=== PATIENT | male | born 1945 | race Hispanic/Latino ===

== ENCOUNTER → 2017-06-24 | Outpatient (CLI) | payer OTHER ==
[~2017-06-24] MED LIST: GLIPIZIDE10 MG PO; IBUPROFEN PO; IOPAMIDOL 370 MG/ML 200 ML INFUS..BTL INJ ONE; LANTUS 3ML100 UNITS/ SQ; METFORMIN HCL500 MG PO; METOPROLOL PO; SODIUM CHLORIDE 0.9% 50ML 50 ML ONE
[2017-06-24 15:40] LABS: BLOOD UREA NITROGEN 24 mg/dL (7-26); BUN/CREATININE RATIO 24 (6-25); EST GLOMERULAR FILTRATION RATE > 60 ML/MIN (60-)
--- NOTE | 2017-06-25 08:08 | Diagnostic Imaging Report ---
History: Arterial stenosis Comparison studies:MRA head and neck 07/26/2015 Technique: Axial images were obtained from the thoracic inlet. Coronal and sagittal images reconstructed from the axial data. Intravenous contrast: 100 cc of Omnipaque 300. Findings: Percentage of stenosis will be based on the NASCET criteria. Aortic arch and major vessels: Patent. No abnormalities. Common carotid arteries: Patent. No abnormalities. Right internal carotid artery: Patent. Calcified atherosclerotic plaque at the bulb results in less than 10% stenosis. Calcified and noncalcified atherosclerotic plaque at the cavernous segment posterior genu results in less than 30% stenosis. Patent MCA and PARUL. Left internal carotid artery: Calcified and noncalcified atherosclerotic plaque at the bulb results in more than 90% stenosis. Calcified and noncalcified plaque at the cavernous segment posterior genu results in more than 70% stenosis. Patent MCA. Nonvisualization of the left A1 segment. Distal PARUL opacification . Right vertebral artery: Hypoplastic right arising from aortic arch distal to the 3 trunks. Left vertebral artery: Dominant left. Noncalcified plaque results in 40-60% stenosis of the distal intracranial segment. Spiculated cavitated opacities in the left upper lobe measuring up to 1 cm. Bilateral cataract surgery changes. IMPRESSION: High-grade stenosis of the left carotid bulb secondary to calcified and noncalcified atherosclerotic plaque. High-grade stenosis of the posterior genu ICA cavernous segment. Mild stenosis of the right carotid bulb and ICA cavernous segment. Moderate stenosis at the left dominant vertebral artery intracranial segment (V4). Hypoplastic right vertebral lateral arising from the aortic arch. Spiculated cavitary opacities in the left upper lobe, recommend further evaluation with CT thorax. Signed by: DR Yung Medina M.D. on 06/25/2017 8:05 AM
== END ==
LOC: CT 14:52
PROVIDERS: ATTEND Internal Medicine Cardiovascular Disease
DX: I65.23 Occlusion and stenosis of bilateral carotid arteries (principal)
CPT/HCPCS: 36415; 70498; 82565; 84520; Q9967

== ENCOUNTER 2017-07-06 10:54 | Inpatient (IN) | payer OTHER ==
[2017-07-05 09:47] LABS: BASOPHILS % 0.3 % (0.0-1.0); EOSINOPHILS # (AUTO) 0.2 (0.0-0.4); EOSINOPHILS % 1.7 % (0.0-6.0); HEMATOCRIT 27.7 % (38.2-49.6); HEMOGLOBIN 9.6 g/dL (14.0-18.0); LYMPHOCYTES # (AUTO) 1.6 (1.0-3.2); LYMPHOCYTES % 18.9 % (18.0-39.1); MEAN CORPUSCULAR HEMOGLOBIN 30.7 pg (28-32); MEAN CORPUSCULAR HGB CONC 34.7 g/dL (31-35); MEAN CORPUSCULAR VOLUME 88.5 fL (81-99); MONOCYTES # (AUTO) 0.6 (0.2-0.8); MONOCYTES % 6.8 % (4.4-11.3); NEUTROPHILS # (AUTO) 6.1 (2.1-6.9); NEUTROPHILS % 71.4 % (38.7-80.0); PLATELET COUNT 202 x10e3/uL (140-360); RED BLOOD COUNT 3.13 x10e6/uL (4.3-5.7); RED CELL DISTRIBUTION WIDTH 13.2 % (11.7-14.4)
[2017-07-05 10:05] LABS: ANION GAP 14.1 mmol/L (8-16); BLOOD UREA NITROGEN 21 mg/dL (7-26); BUN/CREATININE RATIO 21 (6-25); CALCIUM 9.2 mg/dL (8.4-10.2); CARBON DIOXIDE 24 mmol/L (22-29); CHLORIDE 105 mmol/L (98-107); CREATININE, SERUM 1.02 mg/dL (0.72-1.25); EST GLOMERULAR FILTRATION RATE > 60 ML/MIN (60-); GLUCOSE 293 mg/dL (74-118); POTASSIUM 4.1 mmol/L (3.5-5.1); SODIUM 139 mmol/L (136-145)
[2017-07-05 10:12] LABS: INR 1.02; PROTHROMBIN TIME 13.9 seconds (11.9-14.5)
[2017-07-05 10:13] LABS: PARTIAL THROMBOPLASTIN TIME 37.7 seconds (23.8-35.5)
--- NOTE | 2017-07-05 11:48 | Diagnostic Imaging Report ---
PROCEDURE: Frontal and lateral views of the chest. COMPARISON: Chest 2 views 02/21/2015. INDICATIONS: PRE OP FINDINGS: Lines/tubes: None. Lungs: Bilateral nodular densities, most prominent in the right upper lung zone projecting between the right posterior fifth and sixth ribs. Airspace opacity in the left lung base. Pleura: Small left pleural effusion. No pneumothorax. Heart and mediastinum: The heart and the mediastinum are normal. Bones: No acute bony abnormality. Median sternotomy wires. IMPRESSION: Nodular densities may represent parenchymal nodules or multifocal pneumonia. CT chest may provide additional information for further characterization. Dictated by: Jose Moore M.D. on 07/05/2017 at 11:57 Electronically approved by: Jose Moore M.D. on 07/05/2017 at 11:57
[~2017-07-06] VITALS: Ht 167.6 cm; Wt 73.9 kg
[2017-07-06] VITALS (28 sets, daily range): BP systolic 139–205; BP diastolic 64–134
[~2017-07-06 10:54] MED LIST changes: +ATORVASTATIN CA10 MG PO; +FERROUS SULFAT325 MG PO; +FINASTERIDE5 MG PO; +FLOMAX0.4 MG PO; +GABAPENTIN300 MG PO; +IBUPROFEN600 MG PO; -IOPAMIDOL 370 MG/ML 200 ML INFUS..BTL INJ ONE; +LASIX20 MG PO; +LISINOPRIL2.5 MG PO; +METOPROLOL SUCC25 MG PO; +PIOGLITAZONE30 MG PO; -SODIUM CHLORIDE 0.9% 50ML 50 ML ONE
[2017-07-06] MEDS ORDERED: HEPARIN SOD/SOD CHLORIDE 1,000 ML ONE (11:52)
[2017-07-06] MEDS ORDERED: THROMBIN FOR SOLN 5,000 UNIT VIAL ONE (12:39)
[2017-07-06] MEDS ORDERED: MUPIROCIN 2% OINT 22 GM TUBE ONE (12:39)
[2017-07-06] MEDS ORDERED: PROTAMINE SULFATE 10 MG/ML 5 ML VIAL ONE (12:39)
[2017-07-06] MEDS ORDERED: HEPARIN SOD (PORCINE) 1000 UNIT/ML 30ML ONE (12:39)
[2017-07-06] MEDS ORDERED: LIDOCAINE HCL 1% 2 ML AMP ONE (12:39)
[2017-07-06] MEDS ORDERED: SODIUM CHLORIDE 0.9% 500ML 500 ML ONE (12:40)
[2017-07-06] MEDS ORDERED: GELATIN SPONGE SZ 100 ONE (12:40)
[2017-07-06] MEDS ORDERED: LIDOCAINE HCL (LTA) 4 ML SOLN ONE (12:44)
[2017-07-06] MEDS ORDERED: MIDAZOLAM HCL 2 MG/2 ML VIAL ONE (14:03)
[2017-07-06] MEDS ORDERED: FENTANYL CITRATE/PF 100MCG/2 ML INJ ONE (14:03)
[2017-07-06] MEDS ORDERED: CEFAZOLIN SOD 1 GM/NS 50ML 50 ML IV ONE (14:44)
[2017-07-06] MEDS ORDERED: SEVOFLURANE INHAL SOLN 250 ML PEN BTL ONE (17:12)
[2017-07-06] MEDS ORDERED: DEXAMETHASONE SOD PHOS INJ 4 MG/ML VIAL ONE (17:12)
[2017-07-06] MEDS ORDERED: PROPOFOL IV EMULSION 10 MG/ML 20 ML VIAL ONE (17:12)
[2017-07-06] MEDS ORDERED: NEOSTIGMINE 5 MG/5ML SYR ONE (17:12)
[2017-07-06] MEDS ORDERED: SUCCINYLCHOLINE 200 MG/10 ML SYR ONE (17:12)
[2017-07-06] MEDS ORDERED: LABETALOL HCL IV 5 MG/ML 20ML MDV ONE (17:12)
[2017-07-06] MEDS ORDERED: ATROPINE SULFATE 1 MG/ML VIAL ONE (17:12)
[2017-07-06] MEDS ORDERED: ROCURONIUM BROMIDE 10 MG/ML 5ML VIAL ONE (17:12)
[2017-07-06] MEDS ORDERED: LIDOCAINE HCL 2% LOCAL INJ 5 ML SDV VIAL INJ ONE (17:12)
[2017-07-06] MEDS ORDERED: KETOROLAC TROMETHAMINE 30 MG/ML VIAL ONE (17:12)
[2017-07-06] MEDS ORDERED: ONDANSETRON HCL INJ 2 MG/ML VIAL ONE (17:12)
[2017-07-06 18:35] LABS: BASOPHILS # (AUTO) 0.1 (0.0-0.1); BASOPHILS % 0.3 % (0.0-1.0); EOSINOPHILS # (AUTO) 0.1 (0.0-0.4); EOSINOPHILS % 0.7 % (0.0-6.0); HEMATOCRIT 28.4 % (38.2-49.6); HEMOGLOBIN 9.9 g/dL (14.0-18.0); LYMPHOCYTES # (AUTO) 1.2 (1.0-3.2); LYMPHOCYTES % 8.4 % (18.0-39.1); MEAN CORPUSCULAR HEMOGLOBIN 31.6 pg (28-32); MEAN CORPUSCULAR HGB CONC 34.9 g/dL (31-35); MEAN CORPUSCULAR VOLUME 90.7 fL (81-99); MONOCYTES # (AUTO) 0.2 (0.2-0.8); MONOCYTES % 1.6 % (4.4-11.3); NEUTROPHILS % 87.8 % (38.7-80.0); PLATELET COUNT 236 x10e3/uL (140-360); RED BLOOD COUNT 3.13 x10e6/uL (4.3-5.7); RED CELL DISTRIBUTION WIDTH 13.5 % (11.7-14.4)
[2017-07-06 18:51] LABS: ANION GAP 15.3 mmol/L (8-16); BLOOD UREA NITROGEN 17 mg/dL (7-26); BUN/CREATININE RATIO 20 (6-25); CALCIUM 9.2 mg/dL (8.4-10.2); CARBON DIOXIDE 24 mmol/L (22-29); CHLORIDE 105 mmol/L (98-107); CREATININE, SERUM 0.86 mg/dL (0.72-1.25); EST GLOMERULAR FILTRATION RATE > 60 ML/MIN (60-); GLUCOSE 209 mg/dL (74-118); POTASSIUM 4.3 mmol/L (3.5-5.1); SODIUM 140 mmol/L (136-145)
[2017-07-06] MEDS ORDERED: SODIUM CHLORIDE 0.9% 1000ML 1,000 ML IV SCH (19:45)
[2017-07-06] MEDS ORDERED: CEFAZOLIN SOD 1 GM VIAL IV NR ×2 (20:00→22:00)
[2017-07-06] MEDS ORDERED: DEXTROSE 50% SYRINGE 50 ML IV PRN (20:15)
[2017-07-06] MEDS ORDERED: ONDANSETRON HCL 4 MG ORAL DISINTEGRATING TAB PO PRN (20:15)
[2017-07-06] MEDS: MORPHINE SULFATE 2 MG/ML SYR IV PRN (20:37)
[2017-07-06] MEDS: LABETALOL HCL IV 5 MG/ML 20ML MDV IV PRN (20:37)
[2017-07-06] MEDS: FINASTERIDE 5 MG TAB PO SCH (21:56)
[2017-07-06] MEDS: ATORVASTATIN 10 MG TAB PO SCH (21:56)
[2017-07-06] MEDS: TAMSULOSIN HCL 0.4 MG CAP PO SCH (21:56)
[2017-07-06] MEDS: METOPROLOL SUCCINATE 25 MG TAB XL PO SCH (21:56)
[2017-07-07] VITALS (57 sets, daily range): BP systolic 113–186; BP diastolic 43–90
[2017-07-07] MEDS ORDERED: PNEUMOCOCCAL VACCINE POLYVALENT 23 MCG/0.5 ML VIAL IM ONE (00:15)
[2017-07-07] MEDS: INSULIN REGULAR, HUMAN 100 UNIT/1 ML 3ML VIAL SQ SCH ×6 (01:18→20:29)
[2017-07-07] MEDS: HYDROCODONE/APAP 5MG-325MG TAB PO PRN (05:24)
[2017-07-07 06:08] LABS: BASOPHILS % 0.1 % (0.0-1.0); HEMATOCRIT 25.7 % (38.2-49.6); HEMOGLOBIN 8.9 g/dL (14.0-18.0); LYMPHOCYTES # (AUTO) 1.2 (1.0-3.2); LYMPHOCYTES % 8.7 % (18.0-39.1); MEAN CORPUSCULAR HGB CONC 34.6 g/dL (31-35); MEAN CORPUSCULAR VOLUME 89.5 fL (81-99); MONOCYTES # (AUTO) 0.9 (0.2-0.8); MONOCYTES % 6.3 % (4.4-11.3); NEUTROPHILS # (AUTO) 11.6 (2.1-6.9); NEUTROPHILS % 84.4 % (38.7-80.0); PLATELET COUNT 252 x10e3/uL (140-360); RED BLOOD COUNT 2.87 x10e6/uL (4.3-5.7); RED CELL DISTRIBUTION WIDTH 13.2 % (11.7-14.4)
[2017-07-07 06:46] LABS: ALANINE AMINOTRANSFERASE 11 IU/L (0-55); ALBUMIN 2.8 g/dL (3.5-5.0); ALBUMIN/GLOBULIN RATIO 0.7 (0.8-2.0); ALKALINE PHOSPHATASE 57 IU/L (40-150); ANION GAP 11.1 mmol/L (8-16); BLOOD UREA NITROGEN 20 mg/dL (7-26); BUN/CREATININE RATIO 21 (6-25); CALCIUM 8.7 mg/dL (8.4-10.2); CARBON DIOXIDE 25 mmol/L (22-29); CHLORIDE 107 mmol/L (98-107); CREATININE, SERUM 0.96 mg/dL (0.72-1.25); EST GLOMERULAR FILTRATION RATE > 60 ML/MIN (60-); GLUCOSE 299 mg/dL (74-118); POTASSIUM 4.1 mmol/L (3.5-5.1); SODIUM 139 mmol/L (136-145)
[2017-07-07] MEDS: TAMSULOSIN HCL 0.4 MG CAP PO SCH (09:00)
[2017-07-07] MEDS: METOPROLOL SUCCINATE 25 MG TAB XL PO SCH ×2 (09:00→17:02)
[2017-07-07] MEDS: FINASTERIDE 5 MG TAB PO SCH (09:00)
[2017-07-07] MEDS: INSULIN DETEMIR 100 UNIT/ML PEN SQ SCH (09:00)
[2017-07-07] MEDS: LISINOPRIL 2.5 MG TAB PO SCH (09:00)
[2017-07-07] MEDS ORDERED: INSULIN DETEMIR 100 UNIT/ML PEN SQ SCH (09:00)
[2017-07-07] MEDS: FUROSEMIDE 20 MG TAB PO SCH (09:00)
[2017-07-07] MEDS ORDERED: PIOGLITAZONE HCL 15 MG TAB PO SCH (09:00)
[2017-07-07] MEDS: FERROUS SULFATE 325 MG TAB PO SCH (09:00)
[2017-07-07] MEDS: ATORVASTATIN 10 MG TAB PO SCH (09:00)
[2017-07-07] MEDS: IBUPROFEN 600 MG TAB PO SCH ×2 (09:00→17:02)
[2017-07-07] MEDS ORDERED: PIOGLITAZONE HCL 30 MG PO SCH (09:00)
--- NOTE | 2017-07-07 09:10 | Consultation ---
DATE OF CONSULTATION: July 07, 2017 PULMONARY/CRITICAL CARE CONSULTATION CHIEF COMPLAINT: Recent carotid endarterectomy and abnormal chest x-ray. HISTORY OF PRESENT ILLNESS: The patient is a 72-year-old man. He came to the hospital for a carotid endarterectomy. Because of the cephalad extension of the lesion, Dr. Espinosa was not able to do the shunt. Postoperatively, there was some transient weakness in the contralateral arm and leg. He had to be subsequently re-explored, but no complications were found. This morning he is moving the right side with no problems. His chest x-ray preoperatively showed some basilar nodular infiltrates. These are new as compared to 2013. He reports having had the flu about 2-3 weeks ago. This morning he did not complain of any chest pain or congestion. He has no cough. PAST SURGICAL HISTORY: Status post carotid endarterectomy as noted above. PAST MEDICAL HISTORY 1. Diabetes. The patient takes insulin at home. 2. Hypertension. SOCIAL HISTORY: The patient is not actively smoking. He is not a drinker. FAMILY HISTORY: Noncontributory. REVIEW OF SYSTEMS: He has no headache or fever. He has no cough or congestion. He does have a bandage over his surgical site. He is not complaining of any chest pain. There is no abdominal pain. There is no nausea or vomiting. He is now moving his extremities well. PHYSICAL EXAMINATION VITAL SIGNS: The patient is afebrile. Vital signs are stable. HEENT: Shows no facial swelling or erythema. Nasal mucosa is normal. The oropharynx is normal. LYMPHATIC: Shows no submandibular, cervical or supraclavicular adenopathy. CARDIAC: Reveals regular rate and rhythm with a normal S1 and S2. There are no murmurs or rubs. LUNGS: Auscultation of the lungs reveals clear breath sounds bilaterally. There is no wheezing. ABDOMEN: Soft and nontender. There is no rebound or guarding. EXTREMITIES: Shows no leg edema or calf tenderness. There is no cyanosis or clubbing. SKIN: Shows no rashes. NEUROLOGIC: Shows no focal abnormalities. IMPRESSION 1. 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 2. Diabetes with insulin at home. 3. Coronary artery disease. 4. Hypertension. 5. Abnormal basilar infiltrates on chest x-ray. PLAN 1. Patient will have a CT scan of the chest to better evaluate the infiltrates. 2. We will also obtain a flu swab. 3. Restart patient's home Lantus and monitor blood sugars. 4. Monitor blood pressure. Job#: [id number] RI
--- NOTE | 2017-07-07 11:19 | Consultation ---
DATE OF CONSULTATION: July 06, 2017 CARDIOLOGY CONSULTATION REASON FOR CONSULTATION: Hypertension, status post left CEA. HPI: This is a 72-year-old male that presented status post left CEA by Dr. Jasson Esipnosa, and he was transferred to ICU for continuation of care. He had a history of carotid stenosis, high blood pressure and diabetes. He denies any chest pain, any palpitation, any dizziness, any shortness of breath, or diaphoresis. EKG showed normal sinus rhythm. He had an arterial line with good blood pressure reading and tracing, and dressing to the left neck. PAST MEDICAL HISTORY: Diabetes, hypertension, hyperlipidemia, CAD, BPH, anemia, and carotid stenosis. PAST SURGICAL HISTORY: Open heart surgery and left CEA. FAMILY HISTORY: Positive for hypertension. SOCIAL HISTORY: Lives at home with family. No smoking. No drinking. MEDICATIONS: See med list. ALLERGIES: HE IS NOT ALLERGIC TO ANY MEDICATIONS. REVIEW OF SYSTEMS: Negative except as mentioned above. PHYSICAL EXAMINATION VITAL SIGNS: Temperature 98, heart rate 75, blood pressure 134/54, respirations 16, and oxygen saturation 99% on 2 L nasal cannula. GENERAL: He is awake, alert and oriented times 3. Able to move all extremities. HEENT: Mucous membrane moist. NECK: Supple. LUNGS: Bilaterally clear to auscultation. CARDIOVASCULAR: S1 and S2. ABDOMEN: Soft. NEUROLOGICAL: Intact. He is able to move all upper and lower extremities. EXTREMITIES: Bilateral lower extremities with no edema. LABS: Sodium 139, potassium 4.1, chloride 107, CO2 25, BUN 20, creatinine 0.96, glucose is 99. White blood cells 13.6, hemoglobin 8.9, hematocrit 25.7, and platelets 252,000. PT 13.9, PTT 37.7 and INR 1.07. IMPRESSION 1. Status post left carotid endarterectomy. 2. Hypertension. 3. Coronary artery disease with coronary artery bypass graft. 4. Diabetes. 5. Anemia. 6. History of BPH. ASSESSMENT AND PLAN: Will get an echo to reassess the LV and valve function. Will continue home blood pressure medications. PT and OT to get him out of the bed. Okay to discharge the art line. Further cardiac workup pending clinical course. Thank you for this consultation. DICTATED BY ZURI BATES NP Job#: [id number] PAULA
--- NOTE | 2017-07-07 15:53 | Consultation ---
DATE OF CONSULTATION: July 07, 2017, at 1 o'clock in the evening. LOCATION: [facility], ICU. NEUROLOGICAL CONSULTATION ATTENDING PHYSICIAN: This is a patient of Dr. Jasson Espinosa. REASON FOR CONSULTATION: Post carotid endarterectomy. This is a 72-year-old male who underwent left carotid endarterectomy by Dr. Jasson Espinosa. The patient was transferred to the ICU. Apparently, he has been having a little weakness of the right arm and right leg, the reason for which a neurological consultation has been requested. The left carotid endarterectomy underwent without any problems. Apparently, the patient also has stenosis of the intracranial portion of the internal carotid. PAST HISTORY: The patient has a history of diabetes, hypertension, coronary artery disease, hyperlipidemia, coronary artery bypass. MEDICATIONS: The list of medications has been reviewed. FAMILY HISTORY: Positive for hypertension. SOCIAL HISTORY: He says he does not smoke and does not drink. ALLERGIES: NONE KNOWN. REVIEW OF SYSTEMS: All 12 steps negative. PHYSICAL EXAMINATION VITAL SIGNS: Blood pressure today is 139/73, pulse 77, temperature 98.8. LUNGS: Clear to auscultation. HEART: Regular sinus rhythm. ABDOMEN: Soft and nontender. No organomegaly. LOWER EXTREMITIES: No edema. No cyanosis. No clubbing. NEUROLOGIC: The patient is awake. He is alert. He is oriented times 3. His speech is clear. No dysarthria or dysphagia. He denies any headache. No dizziness. No speech or swallowing difficulty. He denies any weakness in the upper or lower extremities. CRANIAL NERVES: Pupils are both equal and reactive. The extraocular movements are full. Visual conteh are grossly normal. No evidence of facial weakness. Tongue protrudes in the midline. Palatal movement is normal. MOTOR POWER: Patient is able to elevate both arms against gravity approximately 80 degrees without difficulty. Abduction of the arms 5/5. Flexion and extension of both arms 5/5. Dorsiflexion of both wrists 5/5. Finger extension 5/5. Hand migration agent 5/5. Lower extremities able to elevate each leg against gravity 20 degrees without any difficulty. Flexion of the hips 5/5 bilaterally. Flexion and extension of the knees 5/5. Dorsiflexion of the ankles 5/5. Plantar flexion 5/5. Extension of the toes 5/5. DEEP TENDON REFLEXES: Triceps, biceps and radials are 1+. Knee jerks 1+. Ankle jerks absent bilaterally. Plantar stimulation is down bilaterally. HEAD: Normocephalic. NECK: Supple. LABORATORY WORKUP: CBC shows white count 13,600 with hemoglobin 8.9, hematocrit 25.7, platelets 252,000. Chemistries: Today, sodium 139, potassium 4.1, BUN 20, creatinine 0.96, estimated GFR greater than 60, blood sugar 299. Liver enzymes are all normal. PT and PTT are normal. INR is 1.02. IMAGING: Chest x-ray impression: Nodular densities may represent parenchymal nodes or multifocal pneumonia. CTA of chest has been advised to have. IMPRESSION 1. Status post left carotid endarterectomy. 2. Hypertension. 3. Diabetes mellitus, type 2. 4. Anemia. Patient is doing very well after the surgery. There is no evidence of any focal deficit to suspect any vascular event. The patient should be followed closely. We will be discussing with the attending physician for further options. Job#: [id number]
--- NOTE | 2017-07-07 19:26 | Diagnostic Imaging Report ---
PROCEDURE: CT CHEST WITHOUT CONTRAST CT scan of the chest WITHOUT intravenous contrast, using standard protocol. TECHNIQUE: The chest was scanned utilizing a multidetector helical scanner from the apex to the level of the adrenal glands. No IV contrast was administered per physician's request. Coronal and sagittal multiplanar reformations were obtained. COMPARISON: Patients [facility], , CHEST 2 VIEWS, 07/05/2017, 10:11. INDICATIONS: BIBASILAR INFILTRATES FINDINGS: Lines/tubes: None. Lungs and Airways: Patchy groundglass and nodular opacities in the upper lobes, lingula, and right middle lobe extending along the bronchovascular bundles (series 3, images 29-39 on the right, series 3, image 18, and 33 on the left hand series 3, image 72-89 in the lingula). Mildly thick walled rounded lesion with central lucency, measuring 0.7 cm in the left upper lobe (series 3, image 19, and coronal image 49). Multiple bilateral lower lobe linear opacities, likely representing atelectasis and/or scarring. There is a somewhat wedge-shaped density in the posterior left lower lobe, with swirling of airways and vessels around it, suggesting round atelectasis (series 3, image 81). Mild compressive atelectasis of the lower lobes, right greater than left. Pleura: Trace left and small right pleural effusions. Heart and mediastinum: Thyroid is unremarkable. Heart size is normal. Extensive atherosclerotic calcification of the coronary arteries. The aorta is non-aneurysmal. Main pulmonary artery is normal in caliber. Multiple air foci are noted in the upper mediastinum lateral to the left thyroid lobe (series 2 image 13) and extending superiorly lateral to the left aspect of the hyoid bone (series 2 image 4) and inferiorly in the left aspect of the trachea (series 2 image 35). Lymph nodes: Multiple calcified mediastinal and right hilar lymph nodes. Questionable right hilar adenopathy (series 2, image 63). No axillary adenopathy. Abdomen: Limited views of the upper abdomen show no abnormality within the visualized liver, spleen, pancreas, or kidneys. The adrenal glands are normal. Bones: No acute bony abnormalities. Degenerative changes in the thoracic spine. Midline sternotomy wires. IMPRESSION: 1. findings in bilateral upper lobes, lingula, and right middle lobe, worrisome for multifocal pneumonia. Atypical infection, including mycobacterial disease is also a consideration. 2. Rounded lesion with central lucency in the left upper lobe suggests a cavitary lesion. This may be infectious (including mycobacterial) given the other findings. Although septic embolus is a consideration, this is less likely, given the solitary nature of the finding. A cavitary neoplasm (primary or metastatic could be considered. 3. Multiple air foci in the left mediastinum, as described likely related to recent carotid endarterectomy. 4. Calcified mediastinal and hilar nodes, likely representing prior granulomatous disease. 5. Trace left and small right pleural effusions with associated compressive atelectasis. Findings in the posterior left lower lobe are consistent with round atelectasis. Ventura Weems M.D. Dictated by: Ventura Weems M.D. on 07/07/2017 at 19:34 Electronically approved by: Ventura Weems M.D. on 07/07/2017 at 19:34
[2017-07-07] MEDS ORDERED: GABAPENTIN 300 MG CAP PO SCH (21:00)
[2017-07-08 01:12] VITALS: BP 173/84
[2017-07-08] MEDS: LABETALOL HCL IV 5 MG/ML 20ML MDV IV PRN (01:12)
--- NOTE | 2017-07-08 01:53 | Operative Report ---
DATE OF PROCEDURE: July 06, 2017 FOLDER AND NOTCHER: Pradip Cheng PREOPERATIVE DIAGNOSIS: Severe left carotid stenosis. POSTOPERATIVE DIAGNOSIS: Severe left carotid stenosis. TITLE OF OPERATION: Left carotid endarterectomy. DESCRIPTION OF OPERATION: After the satisfactory accomplishment of general anesthesia, the patient's left neck was prepped and draped in a sterile fashion. A long left carotid incision was made along the anterior border of the sternomastoid muscle. The incision was carried down through the subcutaneous tissues to expose the left common carotid artery. The vessel was dissected free from the surrounding tissues and looped with a vessel loop. The dissection was then carried proximally and distally. The distal extent of the dissection was used to expose the external carotid artery and its branches and a very long segment of the internal carotid artery. It became immediately apparent that the patient had severe disease extending well up into the internal carotid artery, and well proximally down toward the base of the common carotid artery. In addition, it was understood from the preoperative studies that the patient had significant intracranial disease, including an obstruction in the petrous portion of the carotid artery at the base of the brain. Systemic heparin was given for the purpose of anticoagulation. All of the nerve structures were carefully identified and avoided. The internal, external and common carotid arteries were then briefly cross clamped. A long incision was made in the proximal portion of the common carotid artery and carried through the bifurcation, and well up into the internal carotid artery. A calcified ulcerated severe plaque was located throughout the length of the carotid artery, as described. Because of the severe nature of the disease and because of the intracranial disease, it did not seem that an indwelling shunt would be complication free. A shunt was not employed. There was moderate backbleeding from the distal internal carotid artery. The plaque was quickly removed, and the surface of the vessel was quickly smoothed. Heparinized saline flushes were employed. The edges of the arteriotomy incision were then reapproximated using a combination of running 6-0 and running 7-0 Prolene sutures. The clamps were then removed in succession, with great care taken to flush the carotid artery from all loose debris and air prior to removing the distal clamp. Once all of the clamps were removed, protamine was given in order to counteract the effects of the heparin. There were excellent pulses in the common carotid artery and in the distal internal carotid artery. The wound was thoroughly irrigated with antibiotic solution. All bleeding points were cauterized, ligated or oversewn. The wound was then carefully closed with interrupted 2-0 Vicryl for the deep tissues, and a running 2-0 Vicryl for the subcutaneous tissues. The skin was closed with a Monocryl subcuticular stitch. The wound was then sterilely dressed. The patient was left on the operating table while he was awakened. During the early postoperative period, while the patient was still on the table, it appeared that the right arm and leg were weaker and more sluggish than the left arm and leg. After 30 minutes or more of observation, these findings did not seem to change. For this reason, the patient was reintubated, and general anesthesia was reinduced. The left neck was then reprepped and sterile drapes were reapplied. The old incision was quickly reopened, and all of the sutures were removed. Careful exploration of the area revealed a good pulse in the common carotid artery and the external carotid artery, and the internal carotid artery. Heparin was regiven. The common, external and internal carotid arteries were briefly reclamped. The distal end of the old arteriotomy incision was carefully reopened, and extended for a few millimeters. The inside of the artery appeared intact. There was no intimal flap, no debris, and no clot. The backbleeding from the internal carotid artery was no different than before (moderate). All of the vessels were flushed again to ensure the absence of any loose debris or clot. Heparinized saline solution was reused with flushes. The arteriotomy incision was then quickly re-closed with running 7-0 Prolene suture. The clamps were again serially removed. There were excellent pulses in all of the vessels. In summary, the re-exploration revealed a normal postoperative carotid endarterectomy vessel. The wound was then re-irrigated with antibiotic solution, and all bleeding points were carefully cauterized, ligated or oversewn. The wound was then closed in layers with interrupted 2-0 Vicryl for the deep tissues and a running 2-0 Vicryl for the subcutaneous tissues. The skin was closed with a Monocryl subcuticular stitch. The patient remained hemodynamically stable throughout these procedures. The wound was sterilely dressed. The patient was returned to the recovery room in good condition. Job#: [id number] RI
[2017-07-08] MEDS: HYDROCODONE/APAP 5MG-325MG TAB PO PRN (02:08)
[2017-07-08 05:31] VITALS: BP 152/83
[2017-07-08 07:00] VITALS: BP 182/90
[2017-07-08] MEDS: INSULIN REGULAR, HUMAN 100 UNIT/1 ML 3ML VIAL SQ SCH ×2 (07:30→11:30)
[2017-07-08] MEDS: MORPHINE SULFATE 2 MG/ML SYR IV PRN (07:51)
[2017-07-08] MEDS: ATORVASTATIN 10 MG TAB PO SCH (08:57)
[2017-07-08] MEDS: FUROSEMIDE 20 MG TAB PO SCH (08:57)
[2017-07-08] MEDS: FERROUS SULFATE 325 MG TAB PO SCH (08:57)
[2017-07-08] MEDS: TAMSULOSIN HCL 0.4 MG CAP PO SCH (08:57)
[2017-07-08] MEDS: IBUPROFEN 600 MG TAB PO SCH (08:57)
[2017-07-08] MEDS: LISINOPRIL 2.5 MG TAB PO SCH (08:58)
[2017-07-08] MEDS: METOPROLOL SUCCINATE 25 MG TAB XL PO SCH (08:58)
[2017-07-08] MEDS: FINASTERIDE 5 MG TAB PO SCH (08:58)
[2017-07-08] MEDS: INSULIN DETEMIR 100 UNIT/ML PEN SQ SCH (09:00)
[2017-07-08 10:00] VITALS: BP 182/90
[2017-07-08 12:00] VITALS: BP 149/72
[2017-07-08] MEDS ORDERED: KEPPRA500 MG PO (15:15)
== END 2017-07-08 16:02 | disposition home or self-care (01) | DRG 38 ==
LOC: OR 10:54 → ICU 20:11 → IMCU 07-07 16:25
PROVIDERS: ADMIT Thoracic Surgery (Cardiothoracic Vascular Surgery); ATTEND Thoracic Surgery (Cardiothoracic Vascular Surgery)
PROC: 03JY0ZZ Inspection of Upper Artery, Open Approach (ICD-10-PCS; 2017-07-06)
PROC: 03CJ0ZZ Extirpation of Matter from Left Common Carotid Artery, Open Approach (ICD-10-PCS; principal; 2017-07-06 13:30)
DX: I65.22 Occlusion and stenosis of left carotid artery (principal); G97.82 Other postprocedural complications and disorders of nervous system; E11.51 Type 2 diabetes mellitus with diabetic peripheral angiopathy without gangrene; E11.9 Type 2 diabetes mellitus without complications; I10 Essential (primary) hypertension; D64.9 Anemia, unspecified; I25.10 Atherosclerotic heart disease of native coronary artery without angina pectoris; R53.1 Weakness; Z95.1 Presence of aortocoronary bypass graft; N40.0 Benign prostatic hyperplasia without lower urinary tract symptoms; Z79.4 Long term (current) use of insulin; R91.8 Other nonspecific abnormal finding of lung field; G45.8 Other transient cerebral ischemic attacks and related syndromes; R51 Headache
CPT/HCPCS: 36415; 71020; 71250; 80048; 80053; 82948; 85025; 85610; 85730; 86850; 86900; 86920; 87400; 88304; 88311; 90732; 93005; 93306; 96372; 97139; J0461; J0690; J1100; J1644; J1885; J2001; J2250; J2270; J2405; J2720; J7030; J7040

== ENCOUNTER → 2017-08-19 | Outpatient (CLI) | payer OTHER ==
[~2017-08-19] MED LIST changes: +KEPPRA500 MG PO
--- NOTE | 2017-08-19 12:19 | Diagnostic Imaging Report ---
PROCEDURE: CT CHEST WITHOUT CONTRAST CT scan of the chest WITHOUT intravenous contrast, using standard protocol. TECHNIQUE: The chest was scanned utilizing a multidetector helical scanner from the apex to the level of the adrenal glands. No IV contrast was administered per physician's request. Coronal and sagittal multiplanar reformations were obtained. COMPARISON: Patients [facility], CT, CT CHEST , 07/07/2017, 17:26. INDICATIONS: CHANGE IN UPPER LOBE FINDINGS: Lines/tubes: None. Lungs and Airways: Stable mild apical pleuroparenchymal scarring. Interval improvement of previously visualized patchy groundglass and nodular opacities in the upper lobes, lingula, and right middle lobe, extending along the bronchovascular bundles, when compared to prior exam (for example, series 3, image 42 in the current exam versus series 3, image 32 in the prior exam.). Stable 0.7 cm rounded lesion with central lucency in the left upper lobe (series 3, image 28), with decreased wall thickness. There is a stable adjacent 0.7 cm thick-walled lesion with central lucency (series 3, image 29) which is contiguous with a bronchiole. Improved linear opacities in the lateral lingula and lateral right middle lobe, likely represent improved atelectasis. Other linear opacities, predominantly in the left lower lobe are stable, consistent with scarring. Relatively stable wedge-shaped density in the posterior left lower lobe with swirling of airways and vessels, consistent with atelectasis (series 3, image 95, and coronal image 75). Interval resolution of previously visualized bilateral lower lobe compressive atelectasis. Pleura: Previously visualized trace left and small right pleural effusions have resolved. No pneumothorax. Heart and mediastinum: Thyroid is unremarkable. Heart size is normal. Extensive atherosclerotic calcification of the coronary arteries. Aorta is non-aneurysmal. Main pulmonary artery is normal in caliber. Interval resolution of previously visualized air foci in the upper mediastinum. Lymph nodes: A stable multiple calcified mediastinal and right hilar lymph nodes. Stable suspected enlarged lymph node in the right hilum (series 2, image 69). Abdomen: Limited views of the upper abdomen show no abnormality within the visualized liver, spleen, pancreas, or kidneys. The adrenal glands are normal. Bones: No aggressive lytic lesion. Degenerative changes in the thoracic spine. Midline sternotomy wires. IMPRESSION: 1. interval improvement of findings in the upper lobes, lingula, and right middle lobe, suspicious for pneumonia/atypical infection, including mycobacterial disease. 2. Stable cavitary lesions in the left upper lobe, which may be infectious in etiology versus focal dilation of distal bronchiole given the associated linear scarring. 3. Interval resolution of previously visualized pleural effusions and associated bilateral lower lobe compressive atelectasis. 4. Interval resolution of previously visualized air foci in the mediastinum. Ventura Weems M.D. Dictated by: Ventura Weems M.D. on 08/19/2017 at 12:19 Electronically approved by: Ventura Weems M.D. on 08/19/2017 at 12:19
== END ==
LOC: CT 10:09
PROVIDERS: ATTEND Internal Medicine Critical Care Medicine
DX: R91.8 Other nonspecific abnormal finding of lung field (principal)
CPT/HCPCS: 71250

== ENCOUNTER 2019-08-16 09:00 | Inpatient (IN) | payer MEDICARE ==
[2019-08-14 14:55] LABS: BASOPHILS % 0.5 % (0.0-1.0); EOSINOPHILS # (AUTO) 0.2 (0.0-0.4); EOSINOPHILS % 2.1 % (0.0-6.0); HEMATOCRIT 30.4 % (38.2-49.6); HEMOGLOBIN 10.2 g/dL (14.0-18.0); LYMPHOCYTES % 24.6 % (18.0-39.1); MEAN CORPUSCULAR HEMOGLOBIN 32.3 pg (28-32); MEAN CORPUSCULAR HGB CONC 33.6 g/dL (31-35); MEAN CORPUSCULAR VOLUME 96.2 fL (81-99); MONOCYTES % 11.6 % (4.4-11.3); NEUTROPHILS % 60.7 % (38.7-80.0); PLATELET COUNT 141 x10e3/uL (140-360); RED BLOOD COUNT 3.16 x10e6/uL (4.3-5.7); RED CELL DISTRIBUTION WIDTH 14.2 % (11.7-14.4)
[2019-08-14 15:17] LABS: PARTIAL THROMBOPLASTIN TIME 30.6 seconds (23.8-35.5); PROTHROMBIN TIME 13.8 seconds (11.9-14.5)
[2019-08-14 15:26] LABS: ALBUMIN 3.9 g/dL (3.5-5.0); ALBUMIN/GLOBULIN RATIO 1.1 (0.8-2.0); ANION GAP 12.7 mmol/L (8-16); CALCIUM 9.2 mg/dL (8.4-10.2); CREATININE, SERUM 1.47 mg/dL (0.72-1.25); POTASSIUM 4.7 mmol/L (3.5-5.1)
--- NOTE | 2019-08-14 15:59 | Diagnostic Imaging Report ---
EXAMINATION: CHEST 2 VIEWS INDICATION: Pre-operative COMPARISON: None FINDINGS: LINES/TUBES:None LUNGS:The lungs are hyperinflated. Mild biapical pleural parenchymal thickening/scarring. No focal consolidation or pulmonary edema. Mild left basilar subsegmental atelectasis. PLEURA:No pleural effusion or pneumothorax. MEDIASTINUM:The cardiomediastinal silhouette appears normal in size and shape. Atherosclerotic calcifications of the thoracic aorta. Postoperative findings of prior CABG. BONES/SOFT TISSUES:No acute osseous injury. Sternotomy wires intact. ABDOMEN:No free air under the diaphragm. IMPRESSION: No focal pneumonia or pulmonary edema. Signed by: Brandy Diaz MD on 08/14/2019 3:57 PM
[~2019-08-16] VITALS: Ht 167.6 cm; Wt 79.4 kg
[~2019-08-16 09:00] MED LIST changes: +ALLOPURINOL100 MG PO; +CEFEPIME 1GM/NS 0.9% 50 ML 50 ML IV ONE; +CLOPIDOGREL75 MG PO; +GENTAMICIN 80MG/NS 100 ML 200 ML IV ONE; +HUMALOG100 UNIT/1 SC; +LANTUS 3ML100 UNITS/ SC; +LOSARTAN POTASS25 MG PO; +PANTOPRAZOLE SO40 MG PO; +RANEXA500 MG PO; +SODIUM CHLORIDE 0.9% 1000ML 1,000 ML ONE
[2019-08-16] MEDS ORDERED: B&O 60MG R/S 60 MG SUPP PR ONE (10:25)
[2019-08-16] MEDS ORDERED: IOPAMIDOL 300MG/ML 50ML INFUS..BTL IV ONE (10:25)
[2019-08-16] MEDS ORDERED: D5.45%NS/KCL 20MEQ 1,000 ML IV SCH (13:55)
[2019-08-16] MEDS ORDERED: B&O 60MG R/S 60 MG SUPP PR PRN ×2 (14:00→14:45)
[2019-08-16] MEDS ORDERED: ACETAMINOPHEN 1000 MG/100 ML IV PRN ×2 (14:00→18:00)
[2019-08-16] MEDS ORDERED: ONDANSETRON HCL INJ 2MG/ML 2ML 2 MG/ML VIAL IV PRN ×2 (14:00→14:45)
[2019-08-16] MEDS ORDERED: DIPHENHYDRAMINE HCL 25 MG CAP PO PRN ×2 (14:00→14:45)
[2019-08-16] MEDS ORDERED: ACETAMINOPHEN/CODEINE 300MG - 30MG TAB PO PRN (14:00)
[2019-08-16] MEDS ORDERED: CEFTRIAXONE SOD 1 GM/NS 50 ML 50 ML IV SCH (14:00)
--- OUTSIDE RECORDS SUMMARY | 2019-08-16 14:29 | XMS REPORT ---
Author Author [facility] Address Unknown Phone Unavailable Care Team Providers Care Warp Tying Machine Tender Name Role Phone ARTEMIOJIMJose F ROBERTO Unavailable Unavailable MARICRUZ HOLLOWAY Unavailable Unavailable PAULIE SELLERS Unavailable Unavailable PATTI HOLLOWAY Unavailable Unavailable Payers Payer Name Policy Type Policy Number Effective Date Expiration Date Problems This patient has no known problems. Allergies, Adverse Reactions, Alerts Allergy Name Allergy Type Status Severity Reaction(s) Onset Date Inactive Date Treating Clinician Comments No Known Allergies DA Active U 2019-02-24 00:00:00 No Known Allergies DA Active U 2018-08-19 00:00:00 No Known Allergies DA Active U 2018-02-17 00:00:00 Medications This patient has no known medications. Results Test Description Test Time Test Comments Text Results Atomic Results Result Comments CHEST 2 VIEWS 2019-08-14 15:56:00 [facility] [address], [place] [address] Patient Name: IRAIS SHELLEY I MR #: [id number] : 1945 Age/Sex: 74/M Req #: [id number] [facility] Physician: Ordered by: ROBERTO ADAMS MD Report #: [id number] Location: OR Room/Bed: Procedure: [id number] DX/CHEST 2 VIEWS Exam Date: 08/14/19 Exam Time: 1519 REPORT STATUS: Signed EXAMINATION: CHEST 2 VIEWS INDICATION: Pre-operative COMPARISON: None FINDINGS: LINES/TUBES:None LUNGS:The lungs are hyperinflated. Mild biapical pleural parenchymal thickening/scarring. No focal consolidation or pulmonary edema. Mild left basilar subsegmental atelectasis. PLEURA:No pleural effusion or pneumothorax. MEDIASTINUM:The cardiomediastinal silhouette appears normal in size and shape. Atherosclerotic calcifications of the thoracic aorta. Postoperative findings of prior CABG. BONES/SOFT TISSUES:No acute osseous injury. Sternotomy wires intact. ABDOMEN:No free air under the diaphragm. IMPRESSION: No focal pneumonia or pulmonary edema. Signed by: Malka Peguero MD on 08/14/2019 3:57 PM Dictated By: MALKA PEGUERO MD 57 Transcribed By: DICK on 08/14/191556 COPY TO: ROBERTO ADAMS MD - CT CHEST W/O CONTRAST 2019-08-07 15:20:00 Name: IRAIS SHELLEY [facility] : 1945 Age/S: 74 / M [address] Unit #: [id number] Loc: [place] [address] Phys: Rosalba Juarez MD Acct: [id number] Dis Date: Status: PRE CLI PHONE #: [phone] Exam Date: 08/07/2019 1305 FAX #: [phone] Reason: . EXAMS: CPT CODE: [id number] CT CHEST W/O CONTRAST 33189 HISTORY: Nonspecific abdominal findings of the lung. COMPARISON: Chest x-ray from July 21, [address] chest from June 29, 2018. Location: [facility]. CT chest without contrast: Automated exposure control. 2 Noncalcified subpleural lung nodule measuring 5 mm stable in the posterior inferior right lower lobe. New spiculated nodule in the right upper lobe inferiorly laterally measuring 5.2 mm. Left basal nodule is no longer visible. No other nodules are visible. No bronchiectasis, honeycombing or fibrosis. Left basal subsegmental atelectasis is noted. No bronchiectasis, honeycombing or fibrosis. Mild nonspecific groundglass appearance is noted. Mild scarring in the apices bilaterally, greater on the left. 4 mm descending aortic aneurysm. Descending aorta is not aneurysmal. Unremarkable unopacified pulmonary arteries. Unremarkable thyroid glands. Esophageal wall is not thickened. No pathologic adenopathy. Cardiomegaly without pericardial effusion. Heavy atherosclerotic calcifications of the coronary arteries. Visualized upper abdomen is unremarkable. The subcutaneous tissues and the musculature are normal in appearance. No lytic or blastic lesions are noted within the bony skeleton. DJD. Patient is post median sternotomy. IMPRESSION: New slightly ill-defined lung nodule in the right inferior upper lobe measuring 5.2 mm. Stable subpleural two 5 mm right lower lobe lung nodules. Left basal nodule is no longer visible. Follow-up according to Fleischner's criteria ( The Fleischner Society guidelines for followup of an incidentally detected 4 to 6 mm pulmonary nodule are as follows: If the patient is a low risk patient (non-smoker and no known tumor), a 4 to 6 mm nodule should be followed with a chest CT followup at 12 months. If unchanged, no further follow-up is needed. If the patient is a high risk patient (smoker), initial chest CT follow up at 6 to 12 months, then at 18 to 24 months if not changed. If the patient has a primary extra thoracic tumor or hematogenous infection, nodule(s) cannot be ignored as it/they could represent metastasis or septic embolus). PAGE 1 Signed Report (CONTINUED) Name: [facility] : 1945 Age/S: 74 / M [address] [facility] Unit #: [id number] Loc: [place] [address] Phys: Rosalba Juarez MD Acct: [id number] Dis Date: Status: PRE CLI PHONE #: [phone] Exam Date: 08/07/2019 1305 FAX #: [phone] Reason: . EXAMS: CPT CODE: [id number] CT CHEST W/O CONTRAST 04170 <Continued> No acute infiltrates, effusion or congestion. Left basal subsegmental atelectasis with nodular appearance. No acute infiltrates, effusion or congestion. Fusiform ascending aortic aneurysm at 4 cm. at 1520 Reported and signed by: Bradley Khan M.D. CC: Gurwinder Reyes MD; Rosalba Juarez MD Technologist:RT Dalia(R),CT CTDI: DLP: Trnscb Date/Time: 08/07/2019 (1520) t.SDR.[email or web address] Orig Print D/T: S: 08/07/2019 (1523) PAGE 2 Signed Report GLUBED 2019-07-25 06:50:00 GLUBED (test code=GLUBED) 119 mg/dL 74-106 Performed by certified strap cutting machine operator at [facility] [id number] 22:27:00* Test Item Value Reference Range Comments GLUBED (test code=GLUBED) 162 mg/dL 74-106 Performed by certified strap cutting machine operator at [facility] [id number] 16:33:00* Test Item Value Reference Range Comments GLUBED (test code=GLUBED) 163 mg/dL 74-106 Performed by certified strap cutting machine operator at [facility] [id number] 12:46:00* Test Item Value Reference Range Comments GLUBED (test code=GLUBED) 142 mg/dL 74-106 Performed by certified strap cutting machine operator at [facility] BASIC METABOLIC [id number] 15:27:00* Test Item Value Reference Range Comments SODIUM (test code=NA) 140 mmol/L 136-145 POTASSIUM (test code=K) 5.2 mmol/L 3.5-5.1 CHLORIDE (test code=CL) 111.0 mmol/L 98-107 CARBON DIOXIDE (test code=CO2) 26.0 mmol/L 21-32 ANION GAP (test code=GAP) 8.2 10-20 GLUCOSE (test code=GLU) 289 mg/dL 74-106 BLOOD UREA NITROGEN (test code=BUN) 28 mg/dL 7-18 GLOMERULAR FILTRATION RATE (test code=GFR) 46 mL/min >=60 Estimated GFR by using Modified MDRD formula.Chronic kidney disease is defined as either kidney damageor GFR <60 mL/min/1.73 m2 for >3 months. CREATININE (test code=CREAT) 1.50 mg/dL 0.7-1.3 BUN/CREATININE RATIO (test code=BUN/CREA) 18.7 10-20 CALCIUM (test code=CA) 8.6 mg/dL 8.5-10.1 BASIC METABOLIC [id number] 15:22:00* Test Item Value Reference Range Comments SODIUM (test code=NA) 140 mmol/L 136-145 POTASSIUM (test code=K) 5.2 mmol/L 3.5-5.1 CHLORIDE (test code=CL) 111.0 mmol/L 98-107 CARBON DIOXIDE (test code=CO2) mmol/L 21-32 ANION GAP (test code=GAP) 10-20 GLUCOSE (test code=GLU) mg/dL 74-106 BLOOD UREA NITROGEN (test code=BUN) mg/dL 7-18 GLOMERULAR FILTRATION RATE (test code=GFR) mL/min >=60 CREATININE (test code=CREAT) mg/dL 0.7-1.3 BUN/CREATININE RATIO (test code=BUN/CREA) 10-20 CALCIUM (test code=CA) 8.6 mg/dL 8.5-10.1 PROTHROMBIN [id number] 14:43:00* Test Item Value Reference Range Comments PROTHROMBIN TIME PATIENT (test code=PTP) 12.6 seconds 9.0-14.0 INTERNATIONAL NORMAL RATIO (test code=INR) 1.1 0.8-1.2 The therapeutic range for oral anticoagulant therapy formost indications is an international normalized ratio (INR)of between 2.0 and 3.0. The recommended therapeutic INRrange for various clinical situations is listed below: Clinical Situation INR range Pulmonary e mbolism treatment (2.0-3.0)Venous thrombosis treatmentVenous thrombosis prophylaxis (high risk surgery)Prevention of systemic embolism from: Acute myocardial infarction Valvular heart disease Atrial fibrillation Mechanical prosthetic heart valves (2.5-3.5) CBC W/AUTO [id number] 14:37:00* Test Item Value Reference Range Comments WHITE BLOOD CELL (test code=WBC) 7.0 K/mm3 4.5-12.5 RED BLOOD CELL (test code=RBC) 3.33 mill/mm3 4.0-5.8 HEMOGLOBIN (test code=HGB) 10.4 gram/dL 13.0-17.5 HEMATOCRIT (test code=HCT) 32.4 % 42.0-52.0 MEAN CELL VOLUME (test code=MCV) 97.3 fL 80-98 MEAN CELL HGB (test code=MCH) 31.2 picogram 27.0-33.0 MEAN CELL HGB CONCETRATION (test code=MCHC) 32.1 gram/dL 33.0-36.0 RED CELL DISTRIBUTION WIDTH (test code=RDW) 14.8 % 11.6-16.2 RED CELL DISTRIBUTION WIDTH SD (test code=RDW-SD) 53.0 fL 37.0-51.0 PLATELET COUNT (test code=PLT) 127 K/mm3 150-450 MEAN PLATELET VOLUME (test code=MPV) 11.6 fL 6.7-11.0 NEUTROPHIL % (test code=NT%) 63.8 % 39.0-69.0 IMMATURE GRANULOCYTE % (test code=IG%) 1.0 % 0.0-5.0 LYMPHOCYTE % (test code=LY%) 24.4 % 25.0-55.0 MONOCYTE % (test code=MO%) 8.1 % 0.0-10.0 EOSINOPHIL % (test code=EO%) 2.3 % 0.0-5.0 BASOPHIL % (test code=BA%) 0.4 % 0.0-1.0 NUCLEATED RBC % (test code=NRBC%) 0.0 % 0-0 NEUTROPHIL # (test code=NT#) 4.48 K/mm3 1.8-7.7 IMMATURE GRANULOCYTE # (test code=IG#) 0.07 x10 3/uL 0-0.03 LYMPHOCYTE # (test code=LY#) 1.71 K/mm3 1.0-5.0 MONOCYTE # (test code=MO#) 0.57 K/mm3 0-0.8 EOSINOPHIL # (test code=EO#) 0.16 K/mm3 0.0-0.5 BASOPHIL # (test code=BA#) 0.03 K/mm3 0.0-0.2 NUCLEATED RBC # (test code=NRBC#) 0.00 K/mm3 0.0-0.1 - XR CHEST 2 [id number] 13:26:00 FAX: Gurwinder Gamboa MD [phone] [place]: O St: PRE FAX: Patti Guevara MD [phone] Name: IRAIS SHELLEY [facility] : 1945 Age/S: 74/M [address] [facility] Unit #: [id number] Loc: [place] [address] Phys: Patti Holloway MD Acct: [id number] Dis Date: Status: PRE [facility] PHONE #: [phone] Exam Date: 07/21/2019 1250 FAX #: [phone] Reason: PRE OP EXAMS: CPT CODE: [id number] XR CHEST 2 V 53484 REASON FOR EXAM: PRE OP Exam Order Date: 07/21/2019 12:45 PM Ordering MComfort: Patti Holloway MD PROCEDURE: - XR CHEST 2 V COMPARISON: 2 view chest x-ray August 19, 2018 FINDINGS: The lungs are clear. There is no pleural effusion or pneumothorax. Pulmonary vascularity is within normal limits. Post surgical changes of CABG are redemonstrated. There are degenerative changes in the spine. The visualized upper abdomen is within normal limits. IMPRESSION: No acute cardiopulmonary process. Location: [facility] at 1326 Reported and signed by: Jay Monroy MD CC: Gurwinder Reyes MD; Patti Holloway Technologist: STUDENT TECHNOLOGIST; Serenity Benjamin(Syed) Trnscrd Date/Time/By: 07/21/2019 (5782) : By: [email or web address] Orig Print D/T: S: 07/21/2019 (0956) PAGE 1 Signed Report GASTRIC,[id number] 17:13:00 RUN DATE: 05/12/19 [facility] PAGE 1 RUN TIME: 1713 Specimen Inqui ry RUN USER: INTERFACE PATIENT: IRAIS SHELLEY ACCT #: [id number] LOC: V.DSU U #: [id number] AGE/SX: 74/M ROOM: RE05/11/19REG DR: Joseph Lainez MD : [birth year] BED: DIS: STATUS: [facility] TLOC: SPEC #: [id number] RECD: 05/11/19 STATUS: AMANDA ANGLIN #: [id number] JUAN JOSÉ: 05/11/[address] [facility] [address]: Joseph Lainez MD ENTERED: 05/11/19 SP TYPE: GASTRIC BX OTHR DR: Raoul R Patti Millan MDORDERED: GROSS COPIES TO: Self Referred Patti Holloway MD [address] [place], [place] [address] Joseph Lainez MD [address] [address] PROCEDURES: GROSS (05/12/191328) TISSUES: 1. ANTRUM - COLD BX 2. 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 NO AREAS OF MUCOSAL EROSI ON/ULCERATION NEGATIVE FOR INTESTINAL METAPLASIA NEGATIVE FOR MARIELOS COBACTER ORGANISMS NEGATIVE FOR MALIGNANCY Gastric body, biopsy: GASTRIC MUCOSA WITH NO SIGNIFICANT PATHOLOGIC ALTERATION JOSELUIS/ mone Kaiser CONTINUED ON NEXT PAGE RUN DATE: 05/12/19 [facility] PAGE 2 RUN TIME: 1713 Specimen Inquiry RUN USER: INTERFACE SPEC #: [id number] PATIENT: IRAIS SHELLEY #[id number] (Continued) FINAL DIAGNOSIS ( Continued) [id number] MACROSCOPIC The first specimen is rece ived in formalin, labeled with the patient's name, and identified as "antrum", and consists of two pink- isbell biopsy tissue measuring 0.3 cm in aggregate, rice bmitted as (1). The second specimen is received in formalin, labeled with the patient's name, and identified as "body of stomach", and consists of two t an biopsy tissue measuring 0.3 cm in aggregate, submitted as (2). GROSS PERFORMED AT [facility] [address] [place] [address] (p)[phone] MICROSCOP IC All of the stains, including any controls performed, stain appropriately. MICROSCOPIC PERFORMED AT [facility] [address] [place] [address] (p)[phone] PERFO RMING SITE Diagnosis performed at: [facility], L[place]O [address] [place] [address] Signed SIGNATURE ON FILE Tommy Greenwood MD 05/12/19 1713 END OF REPORT [id number] 12:41:00* Test Item Value Reference Range Comments GLUBED (test code=GLUBED) 141 mg/dL 74-106 Performed by certified strap cutting machine operator at [facility] [id number] 12:41:00* Test Item Value Reference Range Comments GLUBED (test code=GLUBED) 51 mg/dL 74-106 Performed by certified strap cutting machine operator at [facility] BASIC METABOLIC [id number] 14:02:00* Test Item Value Reference Range Comments SODIUM (test code=NA) 144 mmol/L 136-145 POTASSIUM (test code=K) 4.6 mmol/L 3.5-5.1 CHLORIDE (test code=CL) 111.0 mmol/L 98-107 CARBON DIOXIDE (test code=CO2) 25.0 mmol/L 21-32 ANION GAP (test code=GAP) 12.6 10-20 GLUCOSE (test code=GLU) 171 mg/dL 74-106 BLOOD UREA NITROGEN (test code=BUN) 37 mg/dL 7-18 GLOMERULAR FILTRATION RATE (test code=GFR) 43 mL/min >=60 Estimated GFR by using Modified MDRD formula.Chronic kidney disease is defined as either kidney damageor GFR <60 mL/min/1.73 m2 for >3 months. CREATININE (test code=CREAT) 1.60 mg/dL 0.7-1.3 BUN/CREATININE RATIO (test code=BUN/CREA) 23.1 10-20 CALCIUM (test code=CA) 8.6 mg/dL 8.5-10.1 CBC W/AUTO [id number] 13:17:00* Test Item Value Reference Range Comments WHITE BLOOD CELL (test code=WBC) 7.5 K/mm3 4.5-12.5 RED BLOOD CELL (test code=RBC) 2.98 mill/mm3 4.0-5.8 HEMOGLOBIN (test code=HGB) 9.4 gram/dL 13.0-17.5 HEMATOCRIT (test code=HCT) 30.2 % 42.0-52.0 MEAN CELL VOLUME (test code=MCV) 101.3 fL 80-98 MEAN CELL HGB (test code=MCH) 31.5 picogram 27.0-33.0 MEAN CELL HGB CONCETRATION (test code=MCHC) 31.1 gram/dL 33.0-36.0 RED CELL DISTRIBUTION WIDTH (test code=RDW) 15.0 % 11.6-16.2 RED CELL DISTRIBUTION WIDTH SD (test code=RDW-SD) 55.6 fL 37.0-51.0 PLATELET COUNT (test code=PLT) 151 K/mm3 150-450 MEAN PLATELET VOLUME (test code=MPV) 10.5 fL 6.7-11.0 NEUTROPHIL % (test code=NT%) 69.2 % 39.0-69.0 IMMATURE GRANULOCYTE % (test code=IG%) 0.5 % 0.0-5.0 LYMPHOCYTE % (test code=LY%) 16.8 % 25.0-55.0 MONOCYTE % (test code=MO%) 9.9 % 0.0-10.0 EOSINOPHIL % (test code=EO%) 3.3 % 0.0-5.0 BASOPHIL % (test code=BA%) 0.3 % 0.0-1.0 NUCLEATED RBC % (test code=NRBC%) 0.0 % 0-0 NEUTROPHIL # (test code=NT#) 5.18 K/mm3 1.8-7.7 IMMATURE GRANULOCYTE # (test code=IG#) 0.04 x10 3/uL 0-0.03 LYMPHOCYTE # (test code=LY#) 1.26 K/mm3 1.0-5.0 MONOCYTE # (test code=MO#) 0.74 K/mm3 0-0.8 EOSINOPHIL # (test code=EO#) 0.25 K/mm3 0.0-0.5 BASOPHIL # (test code=BA#) 0.02 K/mm3 0.0-0.2 NUCLEATED RBC # (test code=NRBC#) 0.00 K/mm3 0.0-0.1 [id number] 20:05:00* Test Item Value Reference Range Comments GLUBED (test code=GLUBED) 93 mg/dL 74-106 Performed by certified strap cutting machine operator at [facility] BASIC METABOLIC [id number] 19:12:00* Test Item Value Reference Range Comments SODIUM (test code=NA) 143 mmol/L 136-145 POTASSIUM (test code=K) 4.0 mmol/L 3.5-5.1 CHLORIDE (test code=CL) 112.0 mmol/L 98-107 CARBON DIOXIDE (test code=CO2) 25.0 mmol/L 21-32 ANION GAP (test code=GAP) 10.0 10-20 GLUCOSE (test code=GLU) 49 mg/dL 74-[address] YADAV by V.LT 04/14/19 1910Critical results verified and read back by Nurse? Y BLOOD UREA NITROGEN (test code=BUN) 54 mg/dL 7-18 GLOMERULAR FILTRATION RATE (test code=GFR) 31 mL/min >=60 Estimated GFR by using Modified MDRD formula.Chronic kidney disease is defined as either kidney damageor GFR <60 mL/min/1.73 m2 for >3 months. CREATININE (test code=CREAT) 2.10 mg/dL 0.7-1.3 BUN/CREATININE RATIO (test code=BUN/CREA) 25.8 10-20 CALCIUM (test code=CA) 9.0 mg/dL 8.5-10.1 BASIC METABOLIC [id number] 18:45:00* Test Item Value Reference Range Comments SODIUM (test code=NA) 143 mmol/L 136-145 POTASSIUM (test code=K) 4.0 mmol/L 3.5-5.1 CHLORIDE (test code=CL) 112.0 mmol/L 98-107 CARBON DIOXIDE (test code=CO2) mmol/L 21-32 ANION GAP (test code=GAP) 10-20 GLUCOSE (test code=GLU) mg/dL 74-106 BLOOD UREA NITROGEN (test code=BUN) mg/dL 7-18 GLOMERULAR FILTRATION RATE (test code=GFR) mL/min >=60 CREATININE (test code=CREAT) mg/dL 0.7-1.3 BUN/CREATININE RATIO (test code=BUN/CREA) 10-20 CALCIUM (test code=CA) mg/dL 8.5-10.1 CBC W/O [id number] 18:25:00* Test Item Value Reference Range Comments WHITE BLOOD CELL (test code=WBC) 10.4 K/mm3 4.5-12.5 RED BLOOD CELL (test code=RBC) 3.34 mill/mm3 4.0-5.8 HEMOGLOBIN (test code=HGB) 10.8 gram/dL 13.0-17.5 HEMATOCRIT (test code=HCT) 32.5 % 42.0-52.0 MEAN CELL VOLUME (test code=MCV) 97.3 fL 80-98 MEAN CELL HGB (test code=MCH) 32.3 picogram 27.0-33.0 MEAN CELL HGB CONCETRATION (test code=MCHC) 33.2 gram/dL 33.0-36.0 RED CELL DISTRIBUTION WIDTH (test code=RDW) 14.1 % 11.6-16.2 PLATELET COUNT (test code=PLT) 191 K/mm3 150-450 MEAN PLATELET VOLUME (test code=MPV) 10.8 fL 6.7-11.0 URINALYSIS [id number] 17:39:00* Test Item Value Reference Range Comments UA COLOR (test code=COLU) Light-Yellow YELLOW UA APPEARANCE (test code=APPU) CLEAR CLEAR UA GLUCOSE DIPSTICK (test code=DGLUU) NEGATIVE mg/dL NEGATIVE UA BILIRUBIN DIPSTICK (test code=BILU) NEGATIVE mg/dL NEGATIVE UA KETONE DIPSTICK (test code=KETU) NEGATIVE mg/dL NEGATIVE UA SPECIFIC GRAVITY (test code=SGU) 1.011 1.001-1.035 UA BLOOD DIPSTICK (test code=HERMILO) Negative mg/dL NEGATIVE UA PH DIPSTICK (test code=BRENDA) 5.0 5.0-8.0 UA PROTEIN DIPSTICK (test code=PROU) NEGATIVE mg/dL NEGATIVE UA UROBILINIOGEN DIPSTICK (test code=URO) Normal mg/dL NEGATIVE UA NITRITE DIPSTICK (test code=EARLINE) NEGATIVE NEGATIVE UA LEUKOCYTE ESTERASE W REFLEX (test code=LEUUR) NEGATIVE Erinn/uL NEGATIVE UA WBC (test code=WBCU) 0-5 per HPF 0-5 UA RBC (test code=RBCU) 0-2 #/HPF 0-5 UA EPITHELIAL CELLS (test code=EPIU) Few (2-5/hpf) per HPF FEW UA BACTERIA (test code=BACU) FEW #/HPF NONE UA HYALINE CAST (test code=HYALU) 3-5 #/LPF 0-5 UA MUCUS (test code=MUCU) FEW #/LPF FEW Urine Source? Clean CatchURINALYSIS [id number] 17:25:00* Test Item Value Reference Range Comments UA COLOR (test code=COLU) Light-Yellow YELLOW UA APPEARANCE (test code=APPU) CLEAR CLEAR UA GLUCOSE DIPSTICK (test code=DGLUU) NEGATIVE mg/dL NEGATIVE UA BILIRUBIN DIPSTICK (test code=BILU) NEGATIVE mg/dL NEGATIVE UA KETONE DIPSTICK (test code=KETU) NEGATIVE mg/dL NEGATIVE UA SPECIFIC GRAVITY (test code=SGU) 1.011 1.001-1.035 UA BLOOD DIPSTICK (test code=HERMILO) Negative mg/dL NEGATIVE UA PH DIPSTICK (test code=BRENDA) 5.0 5.0-8.0 UA PROTEIN DIPSTICK (test code=PROU) NEGATIVE mg/dL NEGATIVE UA UROBILINIOGEN DIPSTICK (test code=URO) Normal mg/dL NEGATIVE UA NITRITE DIPSTICK (test code=EARLINE) NEGATIVE NEGATIVE UA LEUKOCYTE ESTERASE W REFLEX (test code=LEUUR) NEGATIVE Erinn/uL NEGATIVE UA WBC (test code=WBCU) per HPF 0-5 UA RBC (test code=RBCU) per HPF 0-5 UA EPITHELIAL CELLS (test code=EPIU) per HPF Few UA BACTERIA (test code=BACU) per HPF NONE Urine Source? Clean CatchURINALYSIS [id number] 14:08:00* Test Item Value Reference Range Comments UA COLOR (test code=COLU) YELLOW YELLOW UA APPEARANCE (test code=APPU) Cloudy CLEAR UA GLUCOSE DIPSTICK (test code=DGLUU) >1000 (4+) mg/dL NEGATIVE UA BILIRUBIN DIPSTICK (test code=BILU) NEGATIVE mg/dL NEGATIVE UA KETONE DIPSTICK (test code=KETU) NEGATIVE mg/dL NEGATIVE UA SPECIFIC GRAVITY (test code=SGU) 1.017 1.001-1.035 UA BLOOD DIPSTICK (test code=HERMILO) 0.06 mg/dL (1+) mg/dL NEGATIVE UA PH DIPSTICK (test code=BRENDA) 6.5 5.0-8.0 UA PROTEIN DIPSTICK (test code=PROU) 50 (1+) mg/dL NEGATIVE UA UROBILINIOGEN DIPSTICK (test code=URO) Normal mg/dL NEGATIVE UA NITRITE DIPSTICK (test code=EARLINE) NEGATIVE NEGATIVE UA LEUKOCYTE ESTERASE W REFLEX (test code=LEUUR) 500 Erinn/uL (3+) Erinn/uL NEGATIVE UA WBC (test code=WBCU) >200 per HPF 0-5 UA RBC (test code=RBCU) 3-5 #/HPF 0-5 UA WBC CLUMPS (test code=WBCUCL) >10 /HPF NONE UA EPITHELIAL CELLS (test code=EPIU) FEW per HPF FEW UA BACTERIA (test code=BACU) MANY #/HPF NONE UA AMORPHOUS SEDIMENT (test code=AMORU) FEW #/LPF UA YEAST (test code=YEASTU) FEW #/HPF NONE Urine Source? CatheterBASIC METABOLIC [id number] 13:54:00* Test Item Value Reference Range Comments SODIUM (test code=NA) 143 mmol/L 136-145 POTASSIUM (test code=K) 4.2 mmol/L 3.5-5.1 CHLORIDE (test code=CL) 110.0 mmol/L 98-107 CARBON DIOXIDE (test code=CO2) 25.0 mmol/L 21-32 ANION GAP (test code=GAP) 12.2 10-20 GLUCOSE (test code=GLU) 268 mg/dL 74-106 BLOOD UREA NITROGEN (test code=BUN) 37 mg/dL 7-18 GLOMERULAR FILTRATION RATE (test code=GFR) 50 mL/min >=60 Estimated GFR by using Modified MDRD formula.Chronic kidney disease is defined as either kidney damageor GFR <60 mL/min/1.73 m2 for >3 months. CREATININE (test code=CREAT) 1.40 mg/dL 0.7-1.3 BUN/CREATININE RATIO (test code=BUN/CREA) 27.2 10-20 CALCIUM (test code=CA) 8.7 mg/dL 8.5-10.1 CBC W/AUTO [id number] 13:49:00* Test Item Value Reference Range Comments WHITE BLOOD CELL (test code=WBC) 6.8 K/mm3 4.5-12.5 RED BLOOD CELL (test code=RBC) 3.13 mill/mm3 4.0-5.8 HEMOGLOBIN (test code=HGB) 10.2 gram/dL 13.0-17.5 HEMATOCRIT (test code=HCT) 30.9 % 42.0-52.0 MEAN CELL VOLUME (test code=MCV) 98.7 fL 80-98 MEAN CELL HGB (test code=MCH) 32.6 picogram 27.0-33.0 MEAN CELL HGB CONCETRATION (test code=MCHC) 33.0 gram/dL 33.0-36.0 RED CELL DISTRIBUTION WIDTH (test code=RDW) 14.2 % 11.6-16.2 RED CELL DISTRIBUTION WIDTH SD (test code=RDW-SD) 50.3 fL 37.0-51.0 PLATELET COUNT (test code=PLT) 163 K/mm3 150-450 MEAN PLATELET VOLUME (test code=MPV) 10.9 fL 6.7-11.0 NEUTROPHIL % (test code=NT%) 70.4 % 39.0-69.0 IMMATURE GRANULOCYTE % (test code=IG%) 0.6 % 0.0-5.0 LYMPHOCYTE % (test code=LY%) 20.0 % 25.0-55.0 MONOCYTE % (test code=MO%) 7.0 % 0.0-10.0 EOSINOPHIL % (test code=EO%) 1.6 % 0.0-5.0 BASOPHIL % (test code=BA%) 0.4 % 0.0-1.0 NUCLEATED RBC % (test code=NRBC%) 0.0 % 0-0 NEUTROPHIL # (test code=NT#) 4.75 K/mm3 1.8-7.7 IMMATURE GRANULOCYTE # (test code=IG#) 0.04 x10 3/uL 0-0.03 LYMPHOCYTE # (test code=LY#) 1.35 K/mm3 1.0-5.0 MONOCYTE # (test code=MO#) 0.47 K/mm3 0-0.8 EOSINOPHIL # (test code=EO#) 0.11 K/mm3 0.0-0.5 BASOPHIL # (test code=BA#) 0.03 K/mm3 0.0-0.2 NUCLEATED RBC # (test code=NRBC#) 0.00 K/mm3 0.0-0.1 BASIC METABOLIC [id number] 13:48:00* Test Item Value Reference Range Comments SODIUM (test code=NA) 143 mmol/L 136-145 POTASSIUM (test code=K) 4.2 mmol/L 3.5-5.1 CHLORIDE (test code=CL) 110.0 mmol/L 98-107 CARBON DIOXIDE (test code=CO2) mmol/L 21-32 ANION GAP (test code=GAP) 10-20 GLUCOSE (test code=GLU) mg/dL 74-106 BLOOD UREA NITROGEN (test code=BUN) mg/dL 7-18 GLOMERULAR FILTRATION RATE (test code=GFR) mL/min >=60 CREATININE (test code=CREAT) mg/dL 0.7-1.3 BUN/CREATININE RATIO (test code=BUN/CREA) 10-20 CALCIUM (test code=CA) mg/dL 8.5-10.1 [id number] 12:04:00* Test Item Value Reference Range Comments GLUBED (test code=GLUBED) 116 mg/dL 74-106 Performed by certified strap cutting machine operator at [facility] BASIC METABOLIC [id number] 10:44:00* Test Item Value Reference Range Comments SODIUM (test code=NA) 145 mmol/L 136-145 POTASSIUM (test code=K) 4.2 mmol/L 3.5-5.1 CHLORIDE (test code=CL) 112.0 mmol/L 98-107 CARBON DIOXIDE (test code=CO2) 23.0 mmol/L 21-32 ANION GAP (test code=GAP) 14.2 10-20 GLUCOSE (test code=GLU) 157 mg/dL 74-106 BLOOD UREA NITROGEN (test code=BUN) 20 mg/dL 7-18 GLOMERULAR FILTRATION RATE (test code=GFR) 60 mL/min >=60 Estimated GFR by using Modified MDRD formula.Chronic kidney disease is defined as either kidney damageor GFR <60 mL/min/1.73 m2 for >3 months. CREATININE (test code=CREAT) 1.20 mg/dL 0.7-1.3 BUN/CREATININE RATIO (test code=BUN/CREA) 16.7 10-20 CALCIUM (test code=CA) 8.2 mg/dL 8.5-10.1 BASIC METABOLIC [id number] 10:39:00* Test Item Value Reference Range Comments SODIUM (test code=NA) 145 mmol/L 136-145 POTASSIUM (test code=K) 4.2 mmol/L 3.5-5.1 CHLORIDE (test code=CL) 112.0 mmol/L 98-107 CARBON DIOXIDE (test code=CO2) mmol/L 21-32 ANION GAP (test code=GAP) 10-20 GLUCOSE (test code=GLU) mg/dL 74-106 BLOOD UREA NITROGEN (test code=BUN) mg/dL 7-18 GLOMERULAR FILTRATION RATE (test code=GFR) mL/min >=60 CREATININE (test code=CREAT) mg/dL 0.7-1.3 BUN/CREATININE RATIO (test code=BUN/CREA) 10-20 CALCIUM (test code=CA) mg/dL 8.5-10.1 CBC W/AUTO [id number] 10:21:00* Test Item Value Reference Range Comments WHITE BLOOD CELL (test code=WBC) 8.4 K/mm3 4.5-12.5 RED BLOOD CELL (test code=RBC) 3.09 mill/mm3 4.0-5.8 HEMOGLOBIN (test code=HGB) 10.1 gram/dL 13.0-17.5 HEMATOCRIT (test code=HCT) 30.6 % 42.0-52.0 MEAN CELL VOLUME (test code=MCV) 99.0 fL 80-98 MEAN CELL HGB (test code=MCH) 32.7 picogram 27.0-33.0 MEAN CELL HGB CONCETRATION (test code=MCHC) 33.0 gram/dL 33.0-36.0 RED CELL DISTRIBUTION WIDTH (test code=RDW) 13.2 % 11.6-16.2 RED CELL DISTRIBUTION WIDTH SD (test code=RDW-SD) 47.6 fL 37.0-51.0 PLATELET COUNT (test code=PLT) 146 K/mm3 150-450 MEAN PLATELET VOLUME (test code=MPV) 10.8 fL 6.7-11.0 NEUTROPHIL % (test code=NT%) 64.4 % 39.0-69.0 IMMATURE GRANULOCYTE % (test code=IG%) 0.5 % 0.0-5.0 LYMPHOCYTE % (test code=LY%) 19.2 % 25.0-55.0 MONOCYTE % (test code=MO%) 11.0 % 0.0-10.0 EOSINOPHIL % (test code=EO%) 4.5 % 0.0-5.0 BASOPHIL % (test code=BA%) 0.4 % 0.0-1.0 NUCLEATED RBC % (test code=NRBC%) 0.0 % 0-0 NEUTROPHIL # (test code=NT#) 5.44 K/mm3 1.8-7.7 IMMATURE GRANULOCYTE # (test code=IG#) 0.04 x10 3/uL 0-0.03 LYMPHOCYTE # (test code=LY#) 1.62 K/mm3 1.0-5.0 MONOCYTE # (test code=MO#) 0.93 K/mm3 0-0.8 EOSINOPHIL # (test code=EO#) 0.38 K/mm3 0.0-0.5 BASOPHIL # (test code=BA#) 0.03 K/mm3 0.0-0.2 NUCLEATED RBC # (test code=NRBC#) 0.00 K/mm3 0.0-0.1 [id number] 07:43:00* Test Item Value Reference Range Comments GLUBED (test code=GLUBED) 98 mg/dL 74-106 Performed by certified strap cutting machine operator at [facility] [id number] 19:57:00* Test Item Value Reference Range Comments GLUBED (test code=GLUBED) 310 mg/dL 74-106 [facility] strap cutting [facility] [id number] 15:50:00* Test Item Value Reference Range Comments GLUBED (test code=GLUBED) 181 mg/dL 74-106 Performed by certified strap cutting machine operator at [facility] [id number] 12:47:00* Test Item Value Reference Range Comments GLUBED (test code=GLUBED) 198 mg/dL 74-106 Performed by certified strap cutting machine operator at [facility] [id number] 08:10:00* Test Item Value Reference Range Comments GLUBED (test code=GLUBED) 126 mg/dL 74-106 Performed by certified strap cutting machine operator at [facility] [id number] 20:04:00* Test Item Value Reference Range Comments GLUBED (test code=GLUBED) 233 mg/dL 74-106 Performed by certified strap cutting machine operator at [facility] [id number] 17:04:00* Test Item Value Reference Range Comments GLUBED (test code=GLUBED) 265 mg/dL 74-106 Performed by certified strap cutting machine operator at [facility] [id number] 12:48:00* Test Item Value Reference Range Comments GLUBED (test code=GLUBED) 243 mg/dL 74-106 Performed by certified strap cutting machine operator at [facility] FE W/TOTAL IRON BINDING CAP.2019-02-25 09:28:00* Test Item Value Reference Range Comments SERUM IRON (test code=IRON) 37 ug/dL 50-175 TOTAL IRON BINDING CAPACITY (test code=TIBC) 227 mcg/dL 250-450 IRON SATURATION (test code=FESAT) 16.30 % 13-45 VITAMIN [id number] 09:28:00* Test Item Value Reference Range Comments VITAMIN B12 (test code=VITB12) 688 pg/mL 193-986 [id number] 09:28:00* Test Item Value Reference Range Comments FERRITIN (test code=CLARA) 127 ng/mL 8-388 [id number] 09:24:00* Test Item Value Reference Range Comments GLYCOSYLATED HEMOGLOBIN (HA1C) (test code=GLYHGB) 8.1 % HbA1 4.8-6.0 ESTIMATED AVERAGE GLUCOSE (test code=EAG) 186 MG/DL LIPID PROFILE (CORONARY RISK)2019-02-25 09:03:00* Test Item Value Reference Range Comments TRIGLYCERIDES (test code=TRIG) 116 mg/dL 20-150 CHOLESTEROL (test code=CHOL) 122 mg/dL 0-200 CHOLESTEROL/HDL RATIO (test code=CHOLHDL) 2.0 RATIO 0-4.9 RISK ASSOCIATED WITH CHOL/HDL RATIOS: Risk Male Female1/2 AVERAGE 3.43 3.27AVERAGE 4.97 4.442X AVERAGE 9.55 7.053X AVERAGE 23.39 11.04 REFERENCE VALUE IS RELATED TO RISK LEVELS ASRECOMMENDED BY THE [facility]. HEART, LUNG, AND BLOOD INST. HDL CHOLESTEROL (test code=HDL) 51 mg/dL 40-60 LIPOPROTEIN LDL (test code=LDL) 67 mg/dL 100-129 Reference Interval: mg/dL mmol/L Optimal <100 <2.6Near/above optimal 100-129 2.6- 3.3Borderline High 130-159 3.4-4.1High 160-189 4.1-4.9Very High >=190 >=4.9=========This LDL result is a direct measurement.========= HGB [id number] 08:31:00* Test Item Value Reference Range Comments HEMOGLOBIN (test code=HGB) 9.4 gram/dL 13.0-17.5 HEMATOCRIT (test code=HCT) 28.0 % 42.0-52.0 [id number] 08:11:00* Test Item Value Reference Range Comments GLUBED (test code=GLUBED) 203 mg/dL 74-106 Performed by certified strap cutting machine operator at [facility] HGB [id number] 02:16:00* Test Item Value Reference Range Comments HEMOGLOBIN (test code=HGB) 9.3 gram/dL 13.0-17.5 HEMATOCRIT (test code=HCT) 27.7 % 42.0-52.0 [id number] 21:15:00* Test Item Value Reference Range Comments GLUBED (test code=GLUBED) 383 mg/dL 74-106 [facility] certified strap cutting [facility] - CT ABD PELVIS W/[id number] 15:51:00 Name: IRAIS SHELLEY [facility] : 1945 Age/S: 73 / M [address] [facility] Unit #: [id number] Loc: М[place] [address] Phys: Eliazar Stauffer MD Acct: [id number] Dis Date: Status: REG ER PHONE #: [phone] Exam Date: 02/24/2019 1516 FAX #: [phone] Reason: rectal bleed EXAMS: CPT CODE: [id number] CT ABD PELVIS W/CONT 53292 EXAM: CT of the abdomen and pelvis with contrast; INFORMATION: Rectal bleeding; check reposition Philip catheter; TECHNIQUE AND FINDINGS: CT dose reduction protocol; 5 mm cuts through the abdomen and pelvis during and after intravenous infusion of contrast material. There are numerous sigmoid diverticula and a few diverticula along the descending colon; no evidence of diverticulitis or other acute bowel abnormalities. A normal appendix is seen. A Philip catheter is well positioned within the urinary bladder. There appears to be bladder wall thickening. This is difficult to evaluate because the bladder is largely decompressed. Kidneys of normal size and shape. No parenchymal abnormalities; no hydronephrosis. Liver, spleen and pancreas of normal size and shape; no focal lesions. No abno rmalities of the biliary system; no biliary dilatation. Unremarkable adren al glands. Scans through the lower chest show a dense pleural-based lesion with semicircular stranding connecting to the inferior hilar structures. IMPRESSION: 1. Extensive sigmoid diverticulosis and mild diverticulosis of the descending colon, without evidence of diverticuli tis or other acute bowel abnormalities. 2. Well-positioned Philip catheter and suspicion of increased wall thickness of the urinary bladd er. 3. No other significant abdominal or pelvic abnormalities. 4 . The abnormal structure in the left lung base probably represents a rou nded atelectasis. I cannot completely rule out a neoplastic lesion and r ecommend a follow-up study (CT of the chest with contrast) in 3-4 months . at 1551 Repor sandro and signed by: Jesus Biswas M.D. PAGE 1 Signed Report (CONTINUED) [facility] 1945 Age/S: 73 / M [address] Unit #: [id number] Loc: Mehreen louie [place] [address] Phys: Eliazar Stauffer MD Acct: [id number] Dis Date: Status: REG ER PHONE #: [phone] Exam Date: 120 4176 FAX #: [phone] Reason: rectal bleed EXAMS: CPT CODE: [id number] CT ABD PELVIS W/CONT 76184 <Continued> CC: Eliazar Stauffer MD; Patti Holloway Technologist:Marta Dang RT(R) CTDI: DLP: Trnscb Date/Time: 02/24/2019 (8120) [email or web address] Orig Print D/T: S: 02/24/2019 (7385) PAGE 2 Signed Report BASIC METABOLIC PANEL 2019-02-24 14:03:00* Test Item Value Reference Range Comments SODIUM (test code=NA) 141 mmol/L 136-145 POTASSIUM (test code=K) 4.6 mmol/L 3.5-5.1 CHLORIDE (test code=CL) 110.7 mmol/L 98-107 CARBON DIOXIDE (test code=CO2) 26.0 mmol/L 21-32 ANION GAP (test code=GAP) 8.9 10-20 GLUCOSE (test code=GLU) 161 mg/dL 74-106 BLOOD UREA NITROGEN (test code=BUN) 36 mg/dL 7-18 GLOMERULAR FILTRATION RATE (test code=GFR) 46 mL/min >=60 Estimated GFR by using Modified MDRD formula.Chronic kidney disease is defined as either kidney damageor GFR <60 mL/min/1.73 m2 for >3 months. CREATININE (test code=CREAT) 1.51 mg/dL 0.7-1.3 BUN/CREATININE RATIO (test code=BUN/CREA) 23.8 10-20 CALCIUM (test code=CA) 8.7 mg/dL 8.5-10.1 HEPATIC FUNCTION [id number] 14:03:00* Test Item Value Reference Range Comments TOTAL PROTEIN (test code=PROT) 7.6 gram/dL 6.4-8.2 ALBUMIN (test code=ALB) 3.5 g/dL 3.4-5.0 GLOBULIN (test code=GLOB) 4.1 gram/dL 2.7-4.2 ALBUMIN/GLOBULIN RATIO (test code=A/G) 0.9 0.75-1.50 BILIRUBIN TOTAL (test code=BILT) 0.40 mg/dL 0.0-1.0 BILIRUBIN DIRECT (test code=BILD) 0.11 mg/dL 0.0-0.20 SGOT/AST (test code=AST) 15 IUnit/L 15-37 SGPT/ALT (test code=ALT) 20 IUnit/L 12-78 ALKALINE PHOSPHATASE TOTAL (test code=ALKP) 86 IUnit/L 45-117 Note change in reference range due to change in reagent. [id number] 14:03:00* Test Item Value Reference Range Comments LIPASE (test code=LIP) 42 U/L 73.0-393.0 URINALYSIS [id number] 12:59:00* Test Item Value Reference Range Comments UA COLOR (test code=COLU) YELLOW UA APPEARANCE (test code=APPU) CLEAR UA BILIRUBIN DIPSTICK (test code=BILU) NEGATIVE UA SPECIFIC GRAVITY (test code=SGU) 1.001-1.035 UA PH DIPSTICK (test code=BRENDA) 5.0-8.0 UA UROBILINIOGEN DIPSTICK (test code=URO) mg/dL 0.0-0.2 UA NITRITE DIPSTICK (test code=EARLINE) NEGATIVE UA LEUKOCYTE ESTERASE W REFLEX (test code=LEUUR) NEGATIVE UA WBC (test code=WBCU) 3-5 per HPF 0-5 UA RBC (test code=RBCU) >200 per HPF 0-5 UA EPITHELIAL CELLS (test code=EPIU) None seen per HPF Few UA BACTERIA (test code=BACU) R per HPF NONE Urine Source? Clean CatchURINALYSIS [id number] 12:59:00* Test Item Value Reference Range Comments UA COLOR (test code=COLU) RED YELLOW UA APPEARANCE (test code=APPU) TURBID CLEAR UA GLUCOSE DIPSTICK (test code=DGLUU) TRACE mg/dL NEGATIVE UA BILIRUBIN DIPSTICK (test code=BILU) 2+ (Mod 2.0-4.0) NEGATIVE UA KETONE DIPSTICK (test code=KETU) NEGATIVE mg/dL NEGATIVE UA SPECIFIC GRAVITY (test code=SGU) 1.025 1.001-1.035 UA BLOOD DIPSTICK (test code=HERMILO) 3+ (Large) NEGATIVE UA PH DIPSTICK (test code=BRENDA) 6.5 5.0-8.0 UA PROTEIN DIPSTICK (test code=PROU) >=300 (3+) mg/dL Neg-15 UA UROBILINIOGEN DIPSTICK (test code=URO) 1 mg/dL (1+) mg/dL 0.0-0.2 UA NITRITE DIPSTICK (test code=EARLINE) POSITIVE NEGATIVE UA LEUKOCYTE ESTERASE W REFLEX (test code=LEUUR) 1+ NEGATIVE UA WBC (test code=WBCU) 3-5 per HPF 0-5 UA RBC (test code=RBCU) >200 per HPF 0-5 UA EPITHELIAL CELLS (test code=EPIU) None seen per HPF Few UA BACTERIA (test code=BACU) R per HPF NONE Urine Source? Clean CatchPROTHROMBIN [id number] 12:48:00* Test Item Value Reference Range Comments PROTHROMBIN TIME PATIENT (test code=PTP) 12.6 seconds 9.0-14.0 INTERNATIONAL NORMAL RATIO (test code=INR) 1.1 0.8-1.2 The therapeutic range for oral anticoagulant therapy formost indications is an international normalized ratio (INR)of between 2.0 and 3.0. The recommended therapeutic INRrange for various clinical situations is listed below: Clinical Situation INR range Pulmonary e mbolism treatment (2.0-3.0)Venous thrombosis treatmentVenous thrombosis prophylaxis (high risk surgery)Prevention of systemic embolism from: Acute myocardial infarction Valvular heart disease Atrial fibrillation Mechanical prosthetic heart valves (2.5-3.5) IS PATIENT ON ANTICOAGULANTS? NCBC W/O [id number] 12:11:00* Test Item Value Reference Range Comments WHITE BLOOD CELL (test code=WBC) 8.8 K/mm3 4.5-12.5 RED BLOOD CELL (test code=RBC) 3.11 mill/mm3 4.0-5.8 HEMOGLOBIN (test code=HGB) 10.2 gram/dL 13.0-17.5 HEMATOCRIT (test code=HCT) 31.1 % 42.0-52.0 MEAN CELL VOLUME (test code=MCV) 100.0 fL 80-98 MEAN CELL HGB (test code=MCH) 32.8 picogram 27.0-33.0 MEAN CELL HGB CONCETRATION (test code=MCHC) 32.8 gram/dL 33.0-36.0 RED CELL DISTRIBUTION WIDTH (test code=RDW) 13.4 % 11.6-16.2 PLATELET COUNT (test code=PLT) 140 K/mm3 150-450 MEAN PLATELET VOLUME (test code=MPV) 10.4 fL 6.7-11.0 URINALYSIS [id number] 22:50:00* Test Item Value Reference Range Comments UA COLOR (test code=COLU) YELLOW YELLOW UA APPEARANCE (test code=APPU) CLEAR CLEAR UA GLUCOSE DIPSTICK (test code=DGLUU) 1000 (3+) mg/dL NEGATIVE UA BILIRUBIN DIPSTICK (test code=BILU) NEGATIVE mg/dL NEGATIVE UA KETONE DIPSTICK (test code=KETU) NEGATIVE mg/dL NEGATIVE UA SPECIFIC GRAVITY (test code=SGU) 1.016 1.001-1.035 UA BLOOD DIPSTICK (test code=HERMILO) Negative mg/dL NEGATIVE UA PH DIPSTICK (test code=BRENDA) 5.5 5.0-8.0 UA PROTEIN DIPSTICK (test code=PROU) 30 (1+) mg/dL NEGATIVE UA UROBILINIOGEN DIPSTICK (test code=URO) Normal mg/dL NEGATIVE UA NITRITE DIPSTICK (test code=EARLINE) NEGATIVE NEGATIVE UA LEUKOCYTE ESTERASE W REFLEX (test code=LEUUR) NEGATIVE Erinn/uL NEGATIVE UA WBC (test code=WBCU) 0-5 per HPF 0-5 UA RBC (test code=RBCU) 0-2 #/HPF 0-5 UA EPITHELIAL CELLS (test code=EPIU) None seen per HPF FEW UA BACTERIA (test code=BACU) NONE SEEN #/HPF NONE UA HYALINE CAST (test code=HYALU) 3-5 #/LPF 0-5 Urine Source? CatheterCBC W/AUTO [id number] 11:19:00* Test Item Value Reference Range Comments WHITE BLOOD CELL (test code=WBC) 7.50 x10 3/uL 4.5-11.0 RED BLOOD CELL (test code=RBC) 3.02 x10 6/uL 4.00-5.60 HEMOGLOBIN (test code=HGB) 9.7 g/dL 12.5-16.9 HEMATOCRIT (test code=HCT) 30.9 % 37.5-50.7 MEAN CELL VOLUME (test code=MCV) 102.3 fL 81.0-99.0 MEAN CELL HGB (test code=MCH) 32.1 pg 27.0-33.0 MEAN CELL HGB CONCETRATION (test code=MCHC) 31.4 g/dL 33.0-37.0 RED CELL DISTRIBUTION WIDTH CV (test code=RDW) 15.3 % 11.5-14.5 RED CELL DISTRIBUTION WIDTH SD (test code=RDW-SD) 57.1 fL 37.0-54.0 PLATELET COUNT (test code=PLT) 131 x10 3/uL 150-400 MEAN PLATELET VOLUME (test code=MPV) 12.1 fL 7.0-9.0 NEUTROPHIL % (test code=NT%) 70.6 % 56.0-77.0 IMMATURE GRANULOCYTE % (test code=IG%) 0.3 % 0.0-2.0 LYMPHOCYTE % (test code=LY%) 17.3 % 14.0-32.0 MONOCYTE % (test code=MO%) 8.8 % 4.8-9.0 EOSINOPHIL % (test code=EO%) 2.3 % 0.3-3.7 BASOPHIL % (test code=BA%) 0.7 % 0.0-2.0 NUCLEATED RBC % (test code=NRBC%) 0.0 % 0-0 NEUTROPHIL # (test code=NT#) 5.30 x10 3/uL 2.0-7.6 IMMATURE GRANULOCYTE # (test code=IG#) 0.02 x10 3/uL 0.00-0.03 LYMPHOCYTE # (test code=LY#) 1.30 x10 3/uL 1.0-3.8 MONOCYTE # (test code=MO#) 0.66 x10 3/uL 0.1-0.8 EOSINOPHIL # (test code=EO#) 0.17 x10 3/uL 0.0-0.2 BASOPHIL # (test code=BA#) 0.05 x10 3/uL 0.0-0.2 NUCLEATED RBC # (test code=NRBC#) 0.00 x10 3/uL 0.0-0.1 MANUAL DIFF REQUIRED (test code=MDIFF) NO BASIC METABOLIC [id number] 11:19:00* Test Item Value Reference Range Comments SODIUM (test code=NA) 143 mEq/L 134-147 POTASSIUM (test code=K) 4.6 mEq/L 3.4-5.0 CHLORIDE (test code=CL) 116 mEq/L 100-108 CARBON DIOXIDE (test code=CO2) 25 mEq/L 21-33 ANION GAP (test code=GAP) 7 0-20 GLUCOSE (test code=GLU) 104 mg/dL 70-110 BLOOD UREA NITROGEN (test code=BUN) 48 mg/dL 7-18 GLOMERULAR FILTRATION RATE (test code=GFR) 49.8 70-80 Units of measure=ml/min/1.73 m2 CREATININE (test code=CREAT) 1.4 mg/dL 0.6-1.3 CALCIUM (test code=CA) 8.4 mg/dL 8.0-10.5 PROTHROMBIN [id number] 11:09:00* Test Item Value Reference Range Comments PROTHROMBIN TIME PATIENT (test code=PTP) 13.3 SECONDS 9.3-12.9 INTERNATIONAL NORMAL RATIO (test code=INR) 1.2 0.8-1.2 TARGET INR BY INDICATION Indication INR1. Prophylaxis of venous thrombosis 2.0 - 3.0 (orthopedic surgery), Prophylaxis of venous thrombosis (other than high-risk surgery), Treatment of Deep Vein Thrombosis/Pulmonary Embolism, Prevention of systemic embolism - Tissue heart valves, Acute Myocardial Infarction (to prevent systemic embolism), Valvular heart disease, Atrial Fibrillation, Bileaflet mechanical valve in aortic position.2. Mechanical prosthetic valves (high risk), 2.5 - 3.5 Presence of Lupus Anticoagulant or Antiphospholipid Antibodies, Prevention of systemic embolism - Acute Myocardial Infarction (to prevent recurrent infarct). - XR CHEST 2 [id number] 09:58:00 FAX: Patti Guevara MD [phone] [place]: St: PRE Name: IRAIS BRADEN [facility] : [birth year] Age/S: 73/M [address] [place] [address] Unit #: [id number] Loc: [place] [address] Phys: Patti Holloway MD Acct: [id number] Dis Date: Status: PRE SDC PHONE #: [phone] Exam Date: 08/19/2018 0949 FAX #: [phone] Reason: PREOP FOR [facility] EXAMS: CPT CODE: [id number] XR CHEST 2 V 29766 2 view chest x-ray performed August 19, 2018. COMPARISON: April 04, 2018. CLINICAL HISTORY: Pre Op. CAD, [facility] DISCUSSION: 2 views/ films of the jeffy st are submitted. Stable minimal linear atelectasis or scarring in the lef t lung base. Cardiomediastinal silhouette is normal. Mild degenerative ever nges are present in the osseous structures. Sternal wires are present. IMPRESSION: No acute cardiopulmonary findings at 0958 Reported and signed by: Rosalva Archer M.D. CC: Patti Holloway MD Technologist: Willa kirby, RT(R) Trnscrd Date/Time/By: 08/19/2018 ( 0958) : By: JaspalNMG Orig Print D/T: S: 08/19/2018 (1001) PAGE 1 Signed Report BASIC METABOLIC [id number] 09:31:00* Test Item Value Reference Range Comments SODIUM (test code=NA) 141 mEq/L 134-147 POTASSIUM (test code=K) 4.8 mEq/L 3.4-5.0 CHLORIDE (test code=CL) 108 mEq/L 100-108 CARBON DIOXIDE (test code=CO2) 22 mEq/L 21-33 ANION GAP (test code=GAP) 16 0-20 GLUCOSE (test code=GLU) 283 mg/dL 70-110 BLOOD UREA NITROGEN (test code=BUN) 76 mg/dL 7-18 GLOMERULAR FILTRATION RATE (test code=GFR) 33.0 70-80 Units of measure=ml/min/1.73 m2 CREATININE (test code=CREAT) 2.0 mg/dL 0.6-1.3 CALCIUM (test code=CA) 8.8 mg/dL 8.0-10.5 PROTHROMBIN [id number] 09:26:00* Test Item Value Reference Range Comments PROTHROMBIN TIME PATIENT (test code=PTP) 12.8 SECONDS 9.3-12.9 INTERNATIONAL NORMAL RATIO (test code=INR) 1.2 0.8-1.2 TARGET INR BY INDICATION Indication INR1. Prophylaxis of venous thrombosis 2.0 - 3.0 (orthopedic surgery), Prophylaxis of venous thrombosis (other than high-risk surgery), Treatment of Deep Vein Thrombosis/Pulmonary Embolism, Prevention of systemic embolism - Tissue heart valves, Acute Myocardial Infarction (to prevent systemic embolism), Valvular heart disease, Atrial Fibrillation, Bileaflet mechanical valve in aortic position.2. Mechanical prosthetic valves (high risk), 2.5 - 3.5 Presence of Lupus Anticoagulant or Antiphospholipid Antibodies, Prevention of systemic embolism - Acute Myocardial Infarction (to prevent recurrent infarct). CBC W/AUTO [id number] 09:18:00* Test Item Value Reference Range Comments WHITE BLOOD CELL (test code=WBC) 7.85 x10 3/uL 4.5-11.0 RED BLOOD CELL (test code=RBC) 3.23 x10 6/uL 4.00-5.60 HEMOGLOBIN (test code=HGB) 10.4 g/dL 12.5-16.9 HEMATOCRIT (test code=HCT) 32.7 % 37.5-50.7 MEAN CELL VOLUME (test code=MCV) 101.2 fL 81.0-99.0 MEAN CELL HGB (test code=MCH) 32.2 pg 27.0-33.0 MEAN CELL HGB CONCETRATION (test code=MCHC) 31.8 g/dL 33.0-37.0 RED CELL DISTRIBUTION WIDTH CV (test code=RDW) 15.0 % 11.5-14.5 RED CELL DISTRIBUTION WIDTH SD (test code=RDW-SD) 56.2 fL 37.0-54.0 PLATELET COUNT (test code=PLT) 148 x10 3/uL 150-400 MEAN PLATELET VOLUME (test code=MPV) 12.5 fL 7.0-9.0 NEUTROPHIL % (test code=NT%) 67.8 % 56.0-77.0 IMMATURE GRANULOCYTE % (test code=IG%) 0.6 % 0.0-2.0 LYMPHOCYTE % (test code=LY%) 18.7 % 14.0-32.0 MONOCYTE % (test code=MO%) 10.6 % 4.8-9.0 EOSINOPHIL % (test code=EO%) 1.8 % 0.3-3.7 BASOPHIL % (test code=BA%) 0.5 % 0.0-2.0 NUCLEATED RBC % (test code=NRBC%) 0.0 % 0-0 NEUTROPHIL # (test code=NT#) 5.32 x10 3/uL 2.0-7.6 IMMATURE GRANULOCYTE # (test code=IG#) 0.05 x10 3/uL 0.00-0.03 LYMPHOCYTE # (test code=LY#) 1.47 x10 3/uL 1.0-3.8 MONOCYTE # (test code=MO#) 0.83 x10 3/uL 0.1-0.8 EOSINOPHIL # (test code=EO#) 0.14 x10 3/uL 0.0-0.2 BASOPHIL # (test code=BA#) 0.04 x10 3/uL 0.0-0.2 NUCLEATED RBC # (test code=NRBC#) 0.00 x10 3/uL 0.0-0.1 MANUAL DIFF REQUIRED (test code=MDIFF) NO CT CHEST [place] [address] Patient Name: IRAIS SHELLEY MR #: [id number] : 1945 Age/Sex: 72/M Req #: [id number] Adm Physician: Ordered by: MARICRUZ HOLLOWAY MD Report #: [id number] Location: [place] Room/Bed: Procedure: [id number] CT/CT CHEST WO Exam Date: 8 Exam Time: 1015 REPORT STATUS: Signed PROC EDURE: CT CHEST WITHOUT CONTRAST CT scan of the chest WITHOUT intravenous cont rast, using standard protocol. TECHNIQUE: The chest was scanned utili zing a multidetector helical scanner from the apex to the level of the adrena l glands. No IV contrast was administered per physician's request. Coronal a nd sagittal multiplanar reformations were obtained. COMPARISON: Patient s [facility], CT, CT CHEST WO, 07/07/2017, 17:26. INDICATIONS: CHANGE IN UPPER LOBE FINDINGS: Lines/tubes: None. Lungs and Airways: Stable mild apical pleuroparenchymal scarring. Interval improvement of previ ously visualized patchy groundglass and nodular opacities in the upper lobes, lingula, and right middle lobe, extending along the bronchovascular bundles, when compared to prior exam (for example, series 3, image 42 in the current exam versus series 3, image 32 in the prior exam.). Stable 0.7 cm rounded l esion with central lucency in the left upper lobe (series 3, image 28), with decreased wall thickness. There is a stable adjacent 0.7 cm thick-walled lesio n with central lucency (series 3, image 29) which is contiguous with a bronch iole. Improved linear opacities in the lateral lingula and lateral right mi ddle lobe, likely represent improved atelectasis. Other linear opacities, pre dominantly in the left lower lobe are stable, consistent with scarring. Rel atively stable wedge-shaped density in the posterior left lower lobe with swi rling of airways and vessels, consistent with atelectasis (series 3, image 95 , and coronal image 75). Interval resolution of previously visualized bilatera l lower lobe compressive atelectasis. Pleura: Previously visualized tra ce left and small right pleural effusions have resolved. No pneumothorax. H eart and mediastinum: Thyroid is unremarkable. Heart size is normal. Extensiv e atherosclerotic calcification of the coronary arteries. Aorta is non-aneury smal. Main pulmonary artery is normal in caliber. Interval resolution of previ ously visualized air foci in the upper mediastinum. Lymph nodes: A stab le multiple calcified mediastinal and right hilar lymph nodes. Stable suspect ed enlarged lymph node in the right hilum (series 2, image 69). Abdomen: Li mited views of the upper abdomen show no abnormality within the visualized li vincenzo, spleen, pancreas, or kidneys. The adrenal glands are normal. Bones : No aggressive lytic lesion. Degenerative changes in the thoracic spine. Mid line sternotomy wires. IMPRESSION: 1. interval improvement of findi ngs in the upper lobes, lingula, and right middle lobe, suspicious for pneumo rosalia/atypical infection, including mycobacterial disease. 2. Stable cavitary lesions in the left upper lobe, which may be infectious in etiology versus f ocal dilation of distal bronchiole given the associated linear scarring. 3. Interval resolution of previously visualized pleural effusions and associated bilateral lower lobe compressive atelectasis. 4. Interval resolution of prev iously visualized air foci in the mediastinum. Ventura venegas M.D. Dictated by: Ventura Holt M.D. on 08/19/2017 at 12:19 Electronically approved by: Ventura Holt M.D. on 08/19/2017 at 12:19 Dictated By: VENTURA HOLT MD 1219 Transcribed By: JAYSON on 08/19/17 1219 COPY TO: MARICRUZ HOLLOWAY MD CT CHEST [place] [address] Patient Name: IRAIS SHELLEY MR #: [id number] : 1945 Age/Sex: 72/M Req #: [id number] Adm Physician: PAULIE SELLERS MD Ordered by: MARICRUZ HOLLOWAY MD Report #: [id number] Location: [facility] Room/Bed: [place] [address] Procedure: [id number] CT/C T CHEST WO Exam Date: 07/07/17 Exam Time: 1725 REPORT STATUS: Signed PROCEDURE: CT CHEST WITHOUT CONTRAST CT scan of the chest WITHOUT intravenous contrast, using standard protocol. TECHNIQUE: The chest was scanned utilizing a multidetector helical scanner from the a pex to the level of the adrenal glands. No IV contrast was administered per physician's request. Coronal and sagittal multiplanar reformations were obtai darrion. COMPARISON: [facility] [place], DX, CHEST 2 VIEWS, 07/05/2017, 10:11. INDICATIONS: BIBASILAR INFILTRATES FINDINGS: Lines/t ubes: None. Lungs and Airways: Patchy groundglass and nodular opacities i n the upper lobes, lingula, and right middle lobe extending along the bron chovascular bundles (series 3, images 29-39 on the right, series 3, image 18, and 33 on the left hand series 3, image 72-89 in the lingula). Mildly thick walled rounded lesion with central lucency, measuring 0.7 cm in the left up per lobe (series 3, image 19, and coronal image 49). Multiple bilateral lower lobe linear opacities, likely representing atelectasis and/or scarring. Th ere is a somewhat wedge-shaped density in the posterior left lower lobe, with swirling of airways and vessels around it, suggesting round atelectasis (ser ies 3, image 81). Mild compressive atelectasis of the lower lobes, right grea ter than left. Pleura: Trace left and small right pleural effusions. Heart and mediastinum: Thyroid is unremarkable. Heart size is normal. Extens claudia atherosclerotic calcification of the coronary arteries. The aorta is non- aneurysmal. Main pulmonary artery is normal in caliber. Multiple air foci are noted in the upper mediastinum lateral to the left thyroid lobe (series 2 bryanna ge 13) and extending superiorly lateral to the left aspect of the hyoid bone (series 2 image 4) and inferiorly in the left aspect of the trachea (series 2 image 35). Lymph nodes: Multiple calcified mediastinal and right hilar ly mph nodes. Questionable right hilar adenopathy (series 2, image 63). No ax illary adenopathy. Abdomen: Limited views of the upper abdomen show no abnorma lity within the visualized liver, spleen, pancreas, or kidneys. The adrenal g lands are normal. Bones: No acute bony abnormalities. Degenerative turpin ges in the thoracic spine. Midline sternotomy wires. IMPRESSION: 1. findings in bilateral upper lobes, lingula, and right middle lobe, worris ome for multifocal pneumonia. Atypical infection, including mycobacterial dis ease is also a consideration. 2. Rounded lesion with central lucency in the le ft upper lobe suggests a cavitary lesion. This may be infectious (including m ycobacterial) given the other findings. Although septic embolus is a consider ation, this is less likely, given the solitary nature of the finding. A ca vitary neoplasm (primary or metastatic could be considered. 3. Multiple air f oci in the left mediastinum, as described likely related to recent carotid en darterectomy. 4. Calcified mediastinal and hilar nodes, likely representing pr ior granulomatous disease. 5. Trace left and small right pleural effusions with associated compressive atelectasis. Findings in the posterior left lower lobe are consistent with round atelectasis. Ventura Holt M.D. Dictated by: Ventura Holt M.D. on 07/07/2017 at 19:34 Electronic ally approved by: Ventura Holt M.D. on 07/07/2017 at 19:34 Dictated By: VENTURA HOLT MD 33 Transcribed By: JAYSON on 07/07/171933 COPY TO: Jose F HOLLOWAY MD CHEST 2 VIEWS [place] [address] Patient Name: IRAIS SHELLEY MR #: [id number] : 1945 Age/Sex: 72/M Req #: [id number] Adm Physician: Ordered by: PAULIE SELLERS MD Report #: [id number] Location: OR Room/Bed: Procedure: [id number] DX/CHEST 2 VIEWS Exam Date: 0 07/05/17 Exam Time: 1000 REPORT STATUS: Signed PROCEDURE: Frontal and lateral views of the chest. COMPARISON: Chest 2 views 02/21/2015. INDICATIONS: PRE OP FINDINGS: Lines/tubes: None. Lungs: Bilateral nodular densities, most prominent in the right up per lung zone projecting between the right posterior fifth and sixth ribs. Airspace opacity in the left lung base. Pleura: Small left pleural effusi on. No pneumothorax. Heart and mediastinum: The heart and the mediastinum are normal. Bones: No acute bony abnormality. Median sternotomy wires. IMPRESSION: Nodular densities may represent parenchymal nodules or m ultifocal pneumonia. CT chest may provide additional information for further characterization. Dictated by: Jaylen Moore M.D. on 07/05/2017 at 11:57 Electronically approved by: Jaylen Moore M.D. on 07/05/2017 at 11:57 Dictated By: JAYLEN MOORE MD 1157 Transcribed By: JAYSON on 07/05/17 1157 COPY TO: PAULIE PEDROZA MD [place] [address] Patient Name: IRAIS SHELLEY MR #: [id number] : 1945 Age/Sex: 72/M Req #: [id number] Adm Physician: Ordered by: PATTI HOLLOWAY MD Report #: [id number] Location: CT Room/Bed: Procedure: [id number] CT/CTA NECK Exam Date: 06/24/17 Exam Time: 1605 REPORT STATUS: Signed History: Arterial stenosis Comparison studies:MRA head and neck 07/26/2015 Techni que: Axial images were obtained from the thoracic inlet. Coronal and sagitt al images reconstructed from the axial data. Intravenous contrast: 100 cc of O mnipaque 300. Findings: Percentage of stenosis will be based on the NA SCET criteria. Aortic arch and major vessels: Patent. No abnormalities. Common carotid arteries: Patent. No abnormalities. Right internal car otid artery: Patent. Calcified atherosclerotic plaque at the bulb results in l ess than 10% stenosis. Calcified and noncalcified atherosclerotic plaque at th e cavernous segment posterior genu results in less than 30% stenosis. Patent M CA and PARUL. Left internal carotid artery: Calcified and noncalcified athe rosclerotic plaque at the bulb results in more than 90% stenosis. Calcified an d noncalcified plaque at the cavernous segment posterior genu results in more than 70% stenosis. Patent MCA. Nonvisualization of the left A1 segment. Distal PARUL opacification . Right vertebral artery: Hypoplastic right arising fr om aortic arch distal to the 3 trunks. Left vertebral artery: Dominant le ft. Noncalcified plaque results in 40-60% stenosis of the distal intracranial segment. Spiculated cavitated opacities in the left upper lobe measuring u p to 1 cm. Bilateral cataract surgery changes. IMPRESSION: Hig h-grade stenosis of the left carotid bulb secondary to calcified and noncalcif ied atherosclerotic plaque. High-grade stenosis of the posterior genu ICA cave rnous segment. Mild stenosis of the right carotid bulb and ICA cavernous se gment. Moderate stenosis at the left dominant vertebral artery intracranial segment (V4). Hypoplastic right vertebral lateral arising from the aortic arc h. Spiculated cavitary opacities in the left upper lobe, recommend further evaluation with CT thorax. Signed by: DR Yung Medina M.D. on 8:05 AM Dictated By: YUNG CONNELLY MD Electronically Gracie d By: YUNG CONNELLY MD on 06/25/17 08 Transcribed By: DICK on 08 COPY TO: PATTI HOLLOWAY MD
[2019-08-16] MEDS ORDERED: SODIUM CHLORIDE 0.9% 1000ML 1,000 ML ONE (14:34)
--- NOTE | 2019-08-16 15:00 | NUR ---
This 74 y/o male adm to room 105 from [facility] with TURP. Continuous bladder irrigation is running with pink tinged return. Adm procedures were completed. The pt. denies pain or discomfort currently and family is in attendance.
[2019-08-16 15:45] VITALS: BP 148/77
[2019-08-16 16:45] LABS: BASOPHILS % 0.5 % (0.0-1.0); EOSINOPHILS # (AUTO) 0.1 (0.0-0.4); EOSINOPHILS % 1.5 % (0.0-6.0); HEMATOCRIT 29.6 % (38.2-49.6); HEMOGLOBIN 9.8 g/dL (14.0-18.0); LYMPHOCYTES # (AUTO) 1.5 (1.0-3.2); LYMPHOCYTES % 24.9 % (18.0-39.1); MEAN CORPUSCULAR HEMOGLOBIN 32.3 pg (28-32); MEAN CORPUSCULAR HGB CONC 33.1 g/dL (31-35); MEAN CORPUSCULAR VOLUME 97.7 fL (81-99); MONOCYTES # (AUTO) 0.5 (0.2-0.8); MONOCYTES % 8.5 % (4.4-11.3); NEUTROPHILS # (AUTO) 3.9 (2.1-6.9); NEUTROPHILS % 64.3 % (38.7-80.0); PLATELET COUNT 124 x10e3/uL (140-360); RED BLOOD COUNT 3.03 x10e6/uL (4.3-5.7); RED CELL DISTRIBUTION WIDTH 14.3 % (11.7-14.4)
[2019-08-16] MEDS ORDERED: DOCUSATE SODIUM 100 MG CAP PO SCH (17:00)
[2019-08-16 17:05] LABS: ANION GAP 10.2 mmol/L (8-16); CREATININE, SERUM 1.22 mg/dL (0.72-1.25); POTASSIUM 4.2 mmol/L (3.5-5.1)
[2019-08-16] MEDS ORDERED: SEVOFLURANE INHAL SOLN 250 ML PEN BTL ONE (17:49)
[2019-08-16] MEDS ORDERED: PROPOFOL IV EMULSION 10 MG/ML 20 ML VIAL ONE (17:49)
[2019-08-16] MEDS ORDERED: ONDANSETRON HCL INJ 2MG/ML 2ML 2 MG/ML VIAL ONE (17:49)
[2019-08-16] MEDS ORDERED: EPHEDRINE SULFATE INJ 50 MG/ML VIAL ONE (17:49)
[2019-08-16] MEDS ORDERED: DEXAMETHASONE SOD PHOS INJ 4 MG/ML VIAL ONE (17:49)
[2019-08-16] MEDS ORDERED: LIDOCAINE HCL 2% LOCAL INJ 5 ML SDV VIAL INJ ONE (17:49)
[2019-08-16] MEDS ORDERED: PHENYLEPHRINE HCL 1% 10 MG/ML VIAL ONE (17:49)
[2019-08-16] MEDS ORDERED: PHENAZOPYRIDINE HCL 100 MG TAB PO SCH (18:00)
[2019-08-16] MEDS: DOCUSATE SODIUM 100 MG CAP PO SCH (18:11)
[2019-08-16] MEDS: CEFTRIAXONE SOD 1 GM/NS 50 ML 50 ML IV SCH (18:11)
[2019-08-16] MEDS: PHENAZOPYRIDINE HCL 100 MG TAB PO SCH (18:11)
[2019-08-16] MEDS: D5.45%NS/KCL 20MEQ 1,000 ML IV SCH ×2 (18:11→22:45)
--- NOTE | 2019-08-16 19:01 | NUR ---
Bedside rounding completed with the oncoming nurse
[2019-08-16 20:00] VITALS: BP 118/65
[2019-08-16 20:25] VITALS: BP 118/65
[2019-08-16] MEDS: ACETAMINOPHEN/CODEINE 300MG - 30MG TAB PO PRN (23:36)
[2019-08-17] VITALS (9 sets, daily range): BP systolic 116–153; BP diastolic 56–74
[2019-08-17] MEDS: D5.45%NS/KCL 20MEQ 1,000 ML IV SCH (01:33)
--- NOTE | 2019-08-17 07:00 | NUR ---
BEDSIDE SHIFT REPORT, PT IN STABLE CONDITION, UPDATED ON POC VOCIED UNDERSTANDING, LOGAN PAIN AT THIS TIME, IVF INFUSING TO R FA 20G NO SS OF INFILTRATION NOTED, DELCID TO BSD WITH PINK URINE NOTED, CBI IN PROGRESS. NO OTHER CO VOICED CALL LIGHT IN REACH WILL CONTINUE TO MONITOR
[2019-08-17 07:45] LABS: BASOPHILS % 0.4 % (0.0-1.0); EOSINOPHILS # (AUTO) 0.1 (0.0-0.4); EOSINOPHILS % 1.6 % (0.0-6.0); HEMATOCRIT 28.3 % (38.2-49.6); HEMOGLOBIN 9.4 g/dL (14.0-18.0); LYMPHOCYTES # (AUTO) 1.5 (1.0-3.2); MEAN CORPUSCULAR HEMOGLOBIN 32.4 pg (28-32); MEAN CORPUSCULAR HGB CONC 33.2 g/dL (31-35); MEAN CORPUSCULAR VOLUME 97.6 fL (81-99); MONOCYTES # (AUTO) 0.9 (0.2-0.8); MONOCYTES % 11.2 % (4.4-11.3); NEUTROPHILS # (AUTO) 5.2 (2.1-6.9); NEUTROPHILS % 67.4 % (38.7-80.0); PLATELET COUNT 119 x10e3/uL (140-360); RED CELL DISTRIBUTION WIDTH 14.5 % (11.7-14.4)
[2019-08-17 08:01] LABS: ANION GAP 9.6 mmol/L (8-16); CREATININE, SERUM 1.23 mg/dL (0.72-1.25); POTASSIUM 4.6 mmol/L (3.5-5.1)
[2019-08-17] MEDS: DOCUSATE SODIUM 100 MG CAP PO SCH ×2 (08:30→17:14)
[2019-08-17] MEDS: PHENAZOPYRIDINE HCL 100 MG TAB PO SCH ×3 (08:30→17:15)
[2019-08-17] MEDS ORDERED: ONDANSETRON HCL INJ 2MG/ML 2ML 2 MG/ML VIAL IV PRN (09:15)
[2019-08-17] MEDS ORDERED: DEXTROSE 50% SYRINGE 50 ML IV PRN (09:15)
[2019-08-17] MEDS: ACETAMINOPHEN/CODEINE 300MG - 30MG TAB PO PRN (09:46)
[2019-08-17] MEDS: INSULIN GLARGINE 100 UNITS/ML VIAL SC SCH ×2 (11:00→20:43)
[2019-08-17] MEDS: INSULIN LISPRO 100 UNIT/1 ML 3ML VIAL SQ SCH ×5 (11:30→20:43)
[2019-08-17] MEDS: GABAPENTIN 300 MG CAP PO SCH (17:14)
[2019-08-17] MEDS: RANOLAZINE 500 MG TABSR PO SCH (17:15)
[2019-08-17] MEDS: CEFTRIAXONE SOD 1 GM/NS 50 ML 50 ML IV SCH (17:17)
[2019-08-17] MEDS ORDERED: SODIUM CHLORIDE 0.9% 250ML 250 ML ONE (18:07)
--- NOTE | 2019-08-17 19:17 | NUR ---
WALKING ROUNDS PERFORMED, RECEIVED PT SITTING IN RECLINER, AAOX3, RR EVEN AND NON-LABORED, ON ROOM AIR. NO S/SX OF DISTRESS NOTED. CBI RUNNING, ORANGE URINE NOTED TO CATHETER BAG. LEFT PT SITTING IN RECLINER, CALL LIGHT AND PHONE WITHIN REACH.
[2019-08-17] MEDS ORDERED: ATORVASTATIN 10 MG TAB PO SCH (21:00)
[2019-08-18] VITALS: BP_SYST 116; BP_SYST 125; BP_DIAS 56; BP_DIAS 71
[2019-08-18 04:00] VITALS: BP 155/91
[2019-08-18 06:09] LABS: BASOPHILS % 0.2 % (0.0-1.0); EOSINOPHILS # (AUTO) 0.2 (0.0-0.4); EOSINOPHILS % 2.3 % (0.0-6.0); HEMATOCRIT 30.2 % (38.2-49.6); HEMOGLOBIN 9.8 g/dL (14.0-18.0); LYMPHOCYTES # (AUTO) 1.8 (1.0-3.2); LYMPHOCYTES % 18.8 % (18.0-39.1); MEAN CORPUSCULAR HEMOGLOBIN 32.2 pg (28-32); MEAN CORPUSCULAR HGB CONC 32.5 g/dL (31-35); MEAN CORPUSCULAR VOLUME 99.3 fL (81-99); MONOCYTES % 10.7 % (4.4-11.3); NEUTROPHILS # (AUTO) 6.5 (2.1-6.9); NEUTROPHILS % 67.6 % (38.7-80.0); PLATELET COUNT 117 x10e3/uL (140-360); RED BLOOD COUNT 3.04 x10e6/uL (4.3-5.7); RED CELL DISTRIBUTION WIDTH 14.3 % (11.7-14.4)
[2019-08-18 06:23] LABS: ANION GAP 11.3 mmol/L (8-16); BLOOD UREA NITROGEN 15 mg/dL (7-26); BUN/CREATININE RATIO 13 (6-25); CALCIUM 8.8 mg/dL (8.4-10.2); CARBON DIOXIDE 25 mmol/L (22-29); CHLORIDE 109 mmol/L (98-107); CREATININE, SERUM 1.18 mg/dL (0.72-1.25); EST GLOMERULAR FILTRATION RATE > 60 ML/MIN (60-); GLUCOSE 116 mg/dL (74-118); POTASSIUM 4.3 mmol/L (3.5-5.1); SODIUM 141 mmol/L (136-145)
--- NOTE | 2019-08-18 06:44 | NUR ---
RECEIVED BEDSIDE SHIFT REPORT FROM OFF GOING NURSE. PATIENT IS IN STABLE CONDITION, NO ACUTE DISTRESS NOTED. CALL LIGHT WITHIN REACH. BED IN THE LOWEST POSITION.
[2019-08-18 07:33] VITALS: BP 128/73
[2019-08-18] MEDS ORDERED: BISACODYL 10 MG SUPP PR PRN (08:30)
[2019-08-18] MEDS: INSULIN LISPRO 100 UNIT/1 ML 3ML VIAL SQ SCH ×6 (08:30→17:00)
[2019-08-18] MEDS: INSULIN GLARGINE 100 UNITS/ML VIAL SC SCH (08:30)
[2019-08-18] MEDS ORDERED: MAGNESIUM HYDROXIDE 30 ML UDC PO PRN (08:30)
[2019-08-18] MEDS: GABAPENTIN 300 MG CAP PO SCH ×2 (08:51→16:54)
[2019-08-18] MEDS: DOCUSATE SODIUM 100 MG CAP PO SCH ×2 (08:51→16:54)
[2019-08-18] MEDS: PHENAZOPYRIDINE HCL 100 MG TAB PO SCH ×3 (08:51→17:08)
[2019-08-18] MEDS: RANOLAZINE 500 MG TABSR PO SCH ×2 (08:51→16:20)
[2019-08-18] MEDS ORDERED: FERROUS SULFATE 325 MG TAB PO SCH (09:00)
[2019-08-18] MEDS ORDERED: PANTOPRAZOLE SOD 40 MG TABEC PO SCH (09:00)
[2019-08-18] MEDS ORDERED: FINASTERIDE 5 MG TAB PO SCH (09:00)
[2019-08-18] MEDS ORDERED: TAMSULOSIN HCL 0.4 MG CAP PO SCH (09:00)
[2019-08-18] MEDS ORDERED: ALLOPURINOL 100 MG TAB PO SCH (09:00)
[2019-08-18 09:27] VITALS: BP 128/73
[2019-08-18 11:55] VITALS: BP 128/77
[2019-08-18 16:00] VITALS: BP 90/55
[2019-08-18] MEDS: CEFTRIAXONE SOD 1 GM/NS 50 ML 50 ML IV SCH (16:54)
--- NOTE | 2019-08-18 18:12 | NUR ---
RECEIVED DC ORDER FROM DR. OCONNOR, PATIENT IS IN STABLE CONDITION. IV LINE TO RIGHT FOREARM DISCONTINUED WITH TIP INTACT, PRESSURE APPLIED TO SITE, NO BLEEDING NOTED. DISCHARGE TEACHING PROVIDED TO PATIENT AND FAMILY, THEY ALL VERBALIZED UNDERSTANDING. DISCHARGE FOLDER WITH PRESCRIPTIONS ON HAND. ALL PERSONAL ITEMS ON HAND. PATIENT ACCOMPANIED TO PRIVATE AUTO VIA WHEELCHAIR BY STAFF.
--- NOTE | 2019-08-18 18:12 | NUR ---
DELCID LEG BAG PROVIDED TO PATIENT.
--- NOTE | 2019-09-20 00:17 | Operative Report ---
DATE OF PROCEDURE: 08/16/2019 SURGEON: William Gay MD PREOPERATIVE DIAGNOSES: 1. Obstructive benign prostatic hypertrophy. 2. Urinary tract infections. 3. Microhematuria. POSTOPERATIVE DIAGNOSES: 1. Obstructive benign prostatic hypertrophy. 2. Urinary tract infections. 3. Microhematuria. OPERATION PERFORMED: 1. Cystourethroscopy with bilateral ureteral catheterization and retrograde ureteropyelography (separate procedure performed for urinary tract infections and microhematuria). 2. Interpretation of retrograde ureteropyelography. 3. Supervision of fluoroscopy, no radiologist present. 4. Cystourethroscopy with transurethral resection of the prostate utilizing the PlasmaBand electrode. ANESTHESIA: General. COMPLICATIONS: None. CLINICAL SUMMARY: Reynaldo Srinivasan is a 74-year-old man with the above preoperative diagnoses. He is brought for the above procedures. He is aware of the risks of bleeding, infection, injury to adjacent structures, need for additional procedures, and elected to proceed. OPERATIVE PROCEDURE IN DETAIL: Informed consent was verified. Reynaldo Srinivasan was properly identified, taken to the operating room, placed on the cystoscopy table in supine position. Anesthesia was uneventfully begun. The patient was then carefully and gently repositioned in dorsal lithotomy position with all pressure points well padded. His genitalia were prepared and draped in usual sterile fashion. The cystoscope sheath with visual obturator in place was atraumatically inserted into the patient's urethra, was guided unremarkable urethra through the normal sphincteric region through the prostate bed, which was significant for trilobar prostatic hypertrophy with visually obstructing kissing lateral lobes as well as a smaller median lobe. We entered the patient's bladder and drained. Panendoscopy revealed trabeculations, but no tumors, no suspicious lesions, and no stones were identified. An 8-Romansh catheter was used to cannulate each ureter and retrograde ureteropyelograms were performed. Interpretation of retrograde ureteropyelography contrast was instilled in retrograde fashion bilaterally. There were no tumors, no stones, and no diverticula. Unobstructed drainage was observed bilaterally fluoroscopically. The resectoscope was atraumatically placed. We then proceeded with performing transurethral resection of the prostate utilizing the PlasmaBand electrode. We resected the median lobe first taking care to avoid injuring the ureteral orifices. We then dissected from the bladder neck to maneuver, past the verumontanum and down the surgical capsule. Pinpoint electrocautery was utilized to achieve hemostasis. All chips were evacuated and this was verified cystoscopically. Continuous flow irrigation catheter was then placed and the patient was uneventfully reversed from anesthesia and taken to recovery room in stable condition following placement of a belladonna and opium suppository, which revealed a larger than 40 g prostate, that was smooth, nonfluctuant without any nodules. The patient was then uneventfully reversed from anesthesia. Estimated blood loss was minimal. We will proceed with routine postoperative care and of course ongoing urological followup. William MD Victor [place]/MODL /[id number] cc: Gurwinder Reyes MD
== END 2019-08-18 18:21 | disposition home or self-care (01) | DRG 713 ==
LOC: OR 09:00 → PACU V 13:58 → OR 14:27 → MED/SURG 14:52
PROVIDERS: ADMIT Internal Medicine; ATTEND Internal Medicine
PROC: BT141ZZ Fluoroscopy of Kidneys, Ureters and Bladder using Low Osmolar Contrast (ICD-10-PCS; 2019-08-16)
PROC: 0VT08ZZ Resection of Prostate, Via Natural or Artificial Opening Endoscopic (ICD-10-PCS; principal; 2019-08-16 11:00)
PROC: 0T788ZZ Dilation of Bilateral Ureters, Via Natural or Artificial Opening Endoscopic (ICD-10-PCS; 2019-08-16 11:00)
DX: N40.1 Benign prostatic hyperplasia with lower urinary tract symptoms (principal); N39.0 Urinary tract infection, site not specified; I13.0 Hypertensive heart and chronic kidney disease with heart failure and stage 1 through stage 4 chronic kidney disease, or unspecified chronic kidney disease; N18.4 Chronic kidney disease, stage 4 (severe); R31.0 Gross hematuria; R80.9 Proteinuria, unspecified; R33.9 Retention of urine, unspecified; R39.14 Feeling of incomplete bladder emptying; R39.12 Poor urinary stream; R35.1 Nocturia; Z12.5 Encounter for screening for malignant neoplasm of prostate; N41.1 Chronic prostatitis; I50.9 Heart failure, unspecified
CPT/HCPCS: 36415; 51700; 71046; 74420; 80048; 80053; 82746; 82948; 83735; 85025; 85610; 85730; 88305; 93005; C1758; J0692; J0696; J1100; J1580; J1815; J2001; J2370; J2405; J7030; J7050

== ENCOUNTER 2020-10-12 21:47 | Emergency (ER) | payer MEDICARE ==
[~2020-10-12] VITALS: Ht 167.6 cm; Wt 79.4 kg
[~2020-10-12 21:47] MED LIST changes: -CEFEPIME 1GM/NS 0.9% 50 ML 50 ML IV ONE; -GENTAMICIN 80MG/NS 100 ML 200 ML IV ONE; -SODIUM CHLORIDE 0.9% 1000ML 1,000 ML ONE
[2020-10-12 22:08] LABS: BASOPHILS # (AUTO) 0.1 (0.0-0.1); BASOPHILS % 0.5 % (0.0-1.0); EOSINOPHILS % 0.2 % (0.0-6.0); HEMATOCRIT 30.8 % (38.2-49.6); HEMOGLOBIN 10.6 g/dL (14.0-18.0); LYMPHOCYTES # (AUTO) 1.2 (1.0-3.2); LYMPHOCYTES % 12.5 % (18.0-39.1); MEAN CORPUSCULAR HEMOGLOBIN 33.9 pg (28-32); MEAN CORPUSCULAR HGB CONC 34.4 g/dL (31-35); MEAN CORPUSCULAR VOLUME 98.4 fL (81-99); MONOCYTES # (AUTO) 1.1 (0.2-0.8); MONOCYTES % 11.3 % (4.4-11.3); NEUTROPHILS % 74.9 % (38.7-80.0); PLATELET COUNT 115 x10e3/uL (140-360); RED BLOOD COUNT 3.13 x10e6/uL (4.3-5.7); RED CELL DISTRIBUTION WIDTH 13.9 % (11.7-14.4)
[2020-10-12] MEDS ORDERED: ACETAMINOPHEN 325 MG TAB PO ONE (22:15)
[2020-10-12 22:22] LABS: COLOR,URINE YELLOW (YELLOW); KETONES,URINE NEGATIVE (NEGATIVE); LEUKOCYTE ESTERASE ,URINE NEGATIVE (NEGATIVE); NITRITE,URINE NEGATIVE (NEGATIVE); PROTEIN,URINE DIPSTICK >=300 (NEGATIVE); URINE UROBILINOGEN 0.2 mg/dL (0.2 - 1)
[2020-10-12 22:24] LABS: ALBUMIN 4.2 g/dL (3.5-5.0); ANION GAP 16.9 mmol/L (8-16); CALCIUM 9.2 mg/dL (8.4-10.2); CREATININE, SERUM 1.46 mg/dL (0.72-1.25); POTASSIUM 3.9 mmol/L (3.5-5.1)
[2020-10-12 22:31] LABS: BACTERIA,URINE MODERATE /HPF; EPITHELIAL CELLS,URINE MODERATE /LPF
[2020-10-12 22:31] LABS: CREATINE KINASE MB 2.5 ng/mL (0-5.0)
[2020-10-12] MEDS ORDERED: CEFTRIAXONE SOD 1 GM in SODIUM CHLORIDE 0.9% 50ML 50 ML IV ONE (23:41)
[2020-10-12] MEDS ORDERED: CEFTRIAXONE SOD 1 GM/50 ML BAG IV ONE (23:45)
[2020-10-12] MEDS ORDERED: CEFTRIAXONE SOD 1 GM VIAL ONE (23:50)
[2020-10-12] MEDS ORDERED: SODIUM CHLORIDE 0.9% 50ML 50 ML ONE (23:50)
[2020-10-13 01:04] VITALS: BP 115/72
[2020-10-13 05:10] LABS: CLARITY,URINE SL CLOUDY (CLEAR)
== END 2020-10-13 01:14 | disposition home or self-care (01) ==
LOC: ER 21:54
DX: R53.1 Weakness (principal); R50.9 Fever, unspecified; N39.0 Urinary tract infection, site not specified; T50.Z95A Adverse effect of other vaccines and biological substances, initial encounter; R94.31 Abnormal electrocardiogram [ECG] [EKG]
CPT/HCPCS: 36415; 70450; 71045; 80053; 81001; 82550; 82553; 84484; 85025; 93005; 99284; J0696

== ENCOUNTER 2022-03-16 16:51 | Emergency (ER) | payer MEDICARE ==
[~2022-03-16] VITALS: Ht 167.6 cm; Wt 79.4 kg
[2022-03-16 17:30] LABS: BASOPHILS # (AUTO) 0.1 (0.0-0.1); BASOPHILS % 0.6 % (0.0-1.0); EOSINOPHILS # (AUTO) 0.2 (0.0-0.4); EOSINOPHILS % 1.7 % (0.0-6.0); HEMATOCRIT 32.8 % (38.2-49.6); HEMOGLOBIN 10.7 g/dL (14.0-18.0); LYMPHOCYTES # (AUTO) 2.1 (1.0-3.2); LYMPHOCYTES % 23.7 % (18.0-39.1); MEAN CORPUSCULAR HEMOGLOBIN 32.9 pg (28-32); MEAN CORPUSCULAR HGB CONC 32.6 g/dL (31-35); MEAN CORPUSCULAR VOLUME 100.9 fL (81-99); MONOCYTES # (AUTO) 0.7 (0.2-0.8); MONOCYTES % 7.9 % (4.4-11.3); NEUTROPHILS # (AUTO) 5.8 (2.1-6.9); NEUTROPHILS % 64.4 % (38.7-80.0); PLATELET COUNT 206 x10e3/uL (140-360); RED BLOOD COUNT 3.25 x10e6/uL (4.3-5.7); RED CELL DISTRIBUTION WIDTH 13.5 % (11.7-14.4)
[2022-03-16 18:04] LABS: ALBUMIN 3.5 g/dL (3.5-5.0); ALBUMIN/GLOBULIN RATIO 0.7 (0.8-2.0); ANION GAP 17.4 mmol/L (8-16); CALCIUM 8.6 mg/dL (8.4-10.2); CREATININE, SERUM 2.47 mg/dL (0.72-1.25); POTASSIUM 4.4 mmol/L (3.5-5.1)
[2022-03-16] MEDS ORDERED: CLINDAMYCIN HC300 MG PO (19:16)
== END 2022-03-16 19:32 | disposition home or self-care (01) ==
LOC: ER 17:03
DX: K04.7 Periapical abscess without sinus (principal); E11.65 Type 2 diabetes mellitus with hyperglycemia; I10 Essential (primary) hypertension; I50.9 Heart failure, unspecified; I25.10 Atherosclerotic heart disease of native coronary artery without angina pectoris; K21.9 Gastro-esophageal reflux disease without esophagitis; Z95.1 Presence of aortocoronary bypass graft; Z95.5 Presence of coronary angioplasty implant and graft
CPT/HCPCS: 36415; 70486; 80053; 85025; 99284

== ENCOUNTER 2022-04-07 21:39 | Emergency (ER) | payer MEDICARE ==
[~2022-04-07] VITALS: Ht 167.6 cm; Wt 79.4 kg
[~2022-04-07 21:39] MED LIST changes: +CLINDAMYCIN HC300 MG PO
[2022-04-07] MEDS ORDERED: FLOMAX0.4 MG PO (22:41)
[2022-04-07 22:45] LABS: CLARITY,URINE CLEAR (CLEAR); COLOR,URINE YELLOW (YELLOW); KETONES,URINE NEGATIVE (NEGATIVE); LEUKOCYTE ESTERASE ,URINE NEGATIVE (NEGATIVE); NITRITE,URINE NEGATIVE (NEGATIVE); PROTEIN,URINE DIPSTICK 1+ (NEGATIVE); URINE UROBILINOGEN 0.2 mg/dL (0.2 - 1)
[2022-04-07 22:50] LABS: BACTERIA,URINE FEW /HPF; EPITHELIAL CELLS,URINE FEW /LPF; RBC,URINE 0-5 /HPF (0-5); WBC,URINE (MAN) 0-5 /HPF (0-5)
[2022-04-07 23:45] VITALS: BP 147/77
== END 2022-04-07 23:13 | disposition home or self-care (01) ==
LOC: ER 21:51
DX: R33.9 Retention of urine, unspecified (principal); I12.9 Hypertensive chronic kidney disease with stage 1 through stage 4 chronic kidney disease, or unspecified chronic kidney disease; E11.22 Type 2 diabetes mellitus with diabetic chronic kidney disease; N18.9 Chronic kidney disease, unspecified; I50.9 Heart failure, unspecified; K21.9 Gastro-esophageal reflux disease without esophagitis; I25.10 Atherosclerotic heart disease of native coronary artery without angina pectoris; Z95.5 Presence of coronary angioplasty implant and graft
CPT/HCPCS: 51700; 81001; 87086; 99283

== ENCOUNTER 2022-09-16 16:37 | Emergency (ER) | payer MEDICARE ==
[~2022-09-16] VITALS: Ht 167.6 cm; Wt 79.4 kg
[2022-09-16 18:27] LABS: BASOPHILS # (AUTO) 0.1 (0.0-0.1); BASOPHILS % 0.5 % (0.0-1.0); EOSINOPHILS % 0.2 % (0.0-6.0); HEMATOCRIT 34.3 % (38.2-49.6); HEMOGLOBIN 11.1 g/dL (14.0-18.0); LYMPHOCYTES # (AUTO) 1.8 (1.0-3.2); LYMPHOCYTES % 14.3 % (18.0-39.1); MEAN CORPUSCULAR HEMOGLOBIN 31.8 pg (28-32); MEAN CORPUSCULAR HGB CONC 32.4 g/dL (31-35); MEAN CORPUSCULAR VOLUME 98.3 fL (81-99); MONOCYTES # (AUTO) 1.4 (0.2-0.8); MONOCYTES % 10.8 % (4.4-11.3); NEUTROPHILS # (AUTO) 9.4 (2.1-6.9); NEUTROPHILS % 73.5 % (38.7-80.0); PLATELET COUNT 168 x10e3/uL (140-360); RED BLOOD COUNT 3.49 x10e6/uL (4.3-5.7); RED CELL DISTRIBUTION WIDTH 13.2 % (11.7-14.4)
[2022-09-16 18:51] LABS: ALANINE AMINOTRANSFERASE 15 IU/L (0-55); ALBUMIN 3.7 g/dL (3.5-5.0); ALBUMIN/GLOBULIN RATIO 0.8 (0.8-2.0); ALKALINE PHOSPHATASE 61 IU/L (40-150); ANION GAP 17.9 mmol/L (8-16); BLOOD UREA NITROGEN 40 mg/dL (7-26); BUN/CREATININE RATIO 24 (6-25); CALCIUM 9.5 mg/dL (8.4-10.2); CARBON DIOXIDE 17 mmol/L (22-29); CHLORIDE 111 mmol/L (98-107); CREATINE KINASE 319 IU/L (30-200); CREATININE, SERUM 1.68 mg/dL (0.72-1.25); GLUCOSE 100 mg/dL (74-118); POTASSIUM 3.9 mmol/L (3.5-5.1); SODIUM 142 mmol/L (136-145)
[2022-09-16 22:22] LABS: CLARITY,URINE CLEAR (CLEAR); COLOR,URINE YELLOW (YELLOW); KETONES,URINE 1+ (NEGATIVE); LEUKOCYTE ESTERASE ,URINE NEGATIVE (NEGATIVE); NITRITE,URINE NEGATIVE (NEGATIVE); PROTEIN,URINE DIPSTICK >=300 (NEGATIVE); URINE UROBILINOGEN 0.2 mg/dL (0.2 - 1)
[2022-09-16 22:28] LABS: BACTERIA,URINE FEW /HPF; EPITHELIAL CELLS,URINE FEW /LPF; RBC,URINE 0-5 /HPF (0-5); WBC,URINE (MAN) 0-5 /HPF (0-5)
[2022-09-16] MEDS ORDERED: ACETAMINOPHEN 325 MG TAB PO ONE (23:00)
[2022-09-17 00:37] VITALS: BP 124/72
== END 2022-09-17 00:36 | disposition home or self-care (01) ==
LOC: ER 17:49
DX: R50.9 Fever, unspecified (principal); J40 Bronchitis, not specified as acute or chronic; R53.1 Weakness; I12.9 Hypertensive chronic kidney disease with stage 1 through stage 4 chronic kidney disease, or unspecified chronic kidney disease; E11.22 Type 2 diabetes mellitus with diabetic chronic kidney disease; N18.9 Chronic kidney disease, unspecified; I25.10 Atherosclerotic heart disease of native coronary artery without angina pectoris; I50.9 Heart failure, unspecified; K21.9 Gastro-esophageal reflux disease without esophagitis; Z20.822 Contact with and (suspected) exposure to COVID-19; R94.31 Abnormal electrocardiogram [ECG] [EKG]
CPT/HCPCS: 0223U; 36415; 71045; 80053; 81001; 82550; 82553; 83605; 83880; 84484; 85025; 87040; 93005; 99284; J0696

== ENCOUNTER 2024-10-24 13:50 | Emergency (ER) | payer MEDICARE ==
[~2024-10-24] VITALS: Ht 167.6 cm; Wt 68.0 kg
[2024-10-24 14:15] VITALS: TEMP 98.1
[2024-10-24 16:00] LABS: BASOPHILS % 0.2 % (0.0-1.0); EOSINOPHILS % 0.2 % (0.0-6.0); HEMATOCRIT 28.3 % (38.2-49.6); HEMOGLOBIN 9.5 g/dL (14.0-18.0); LYMPHOCYTES # (AUTO) 1.1 (1.0-3.2); LYMPHOCYTES % 12.9 % (18.0-39.1); MEAN CORPUSCULAR HEMOGLOBIN 32.9 pg (28-32); MEAN CORPUSCULAR HGB CONC 33.6 g/dL (31-35); MEAN CORPUSCULAR VOLUME 97.9 fL (81-99); MONOCYTES # (AUTO) 0.4 (0.2-0.8); MONOCYTES % 4.5 % (4.4-11.3); NEUTROPHILS # (AUTO) 6.7 (2.1-6.9); NEUTROPHILS % 78.4 % (38.7-80.0); PLATELET COUNT 266 x10e3/uL (140-360); RED BLOOD COUNT 2.89 x10e6/uL (4.3-5.7); RED CELL DISTRIBUTION WIDTH 15.1 % (11.7-14.4)
[2024-10-24 16:01] LABS: BILIRUBIN,URINE SMALL (NEGATIVE); CLARITY,URINE HAZY (CLEAR); COLOR,URINE RED (YELLOW); GLUCOSE, URINE 2+ (NEGATIVE); KETONES,URINE NEGATIVE (NEGATIVE); LEUKOCYTE ESTERASE ,URINE SMALL (NEGATIVE); NITRITE,URINE NEGATIVE (NEGATIVE); PH,URINE 5.5 (5 - 7); PROTEIN,URINE DIPSTICK 2+ (NEGATIVE); URINE UROBILINOGEN 0.2 mg/dL (0.2 - 1)
[2024-10-24 16:16] LABS: BACTERIA,URINE MODERATE /HPF; RBC,URINE 21-50 /HPF (0-5)
[2024-10-24 16:17] LABS: INR 0.9; PROTHROMBIN TIME 12.7 seconds (11.9-14.5); YEAST,URINE FEW
[2024-10-24 16:20] LABS: PARTIAL THROMBOPLASTIN TIME 23.2 seconds (23.8-35.5)
[2024-10-24 16:23] LABS: ALBUMIN 3.5 g/dL (3.5-5.0); ANION GAP 15.5 mmol/L (8-16); BILIRUBIN,TOTAL 0.4 mg/dL (0.2-1.2); CALCIUM 9.1 mg/dL (8.4-10.2); CREATININE, SERUM 2.18 mg/dL (0.72-1.25); POTASSIUM 4.5 mmol/L (3.5-5.1); TOTAL PROTEIN 6.9 g/dL (6.5-8.1)
[2024-10-24 16:25] VITALS: PULSE 79; RESP 18
[2024-10-24] MEDS ORDERED: LIDO-PRILO CAI1 EACH TOP (17:16)
[2024-10-24] MEDS ORDERED: CEFUROXIME250 MG PO (17:16)
[2024-10-24 18:01] VITALS: BP 118/61; PULSE 72; RESP 18; TEMP 98.1; O2SAT 100
== END 2024-10-24 18:04 | disposition home or self-care (01) ==
LOC: ER 14:29
DX: N30.91 Cystitis, unspecified with hematuria (principal); I12.9 Hypertensive chronic kidney disease with stage 1 through stage 4 chronic kidney disease, or unspecified chronic kidney disease; E11.22 Type 2 diabetes mellitus with diabetic chronic kidney disease; N18.9 Chronic kidney disease, unspecified; I50.9 Heart failure, unspecified; I25.10 Atherosclerotic heart disease of native coronary artery without angina pectoris; K21.9 Gastro-esophageal reflux disease without esophagitis; Z95.1 Presence of aortocoronary bypass graft; Z95.5 Presence of coronary angioplasty implant and graft
CPT/HCPCS: 36415; 51702; 80053; 81001; 85025; 85610; 85730; 87086; 99284; J0696; 51700

== ENCOUNTER 2024-11-06 12:47 | Emergency (ER) | payer MEDICARE ==
[~2024-11-06] VITALS: Ht 167.6 cm; Wt 68.0 kg
[~2024-11-06 12:47] MED LIST changes: +CEFUROXIME250 MG PO; +LIDO-PRILO CAI1 EACH TOP
[2024-11-06 15:23] LABS: CLARITY,URINE CLEAR (CLEAR); COLOR,URINE YELLOW (YELLOW)
[2024-11-06 15:24] LABS: BILIRUBIN,URINE NEGATIVE (NEGATIVE); GLUCOSE, URINE 500 (NEGATIVE); KETONES,URINE NEGATIVE (NEGATIVE); LEUKOCYTE ESTERASE ,URINE TRACE (NEGATIVE); NITRITE,URINE NEGATIVE (NEGATIVE); PH,URINE 5.5 (5 - 7); PROTEIN,URINE DIPSTICK 2+ (NEGATIVE); URINE UROBILINOGEN 0.2 mg/dL (0.2 - 1)
[2024-11-06 15:26] LABS: BACTERIA,URINE FEW /HPF; RBC,URINE 0-5 /HPF (0-5); WBC,URINE (MAN) 21-50 /HPF (0-5)
[2024-11-06] MEDS ORDERED: CEFDINIR300 MG PO (15:45)
[2024-11-06 16:02] VITALS: PULSE 80; RESP 16; TEMP 98.2; O2SAT 100
== END 2024-11-06 16:00 | disposition home or self-care (01) ==
LOC: ER 13:57
DX: R33.9 Retention of urine, unspecified (principal); I12.9 Hypertensive chronic kidney disease with stage 1 through stage 4 chronic kidney disease, or unspecified chronic kidney disease; E11.22 Type 2 diabetes mellitus with diabetic chronic kidney disease; N18.9 Chronic kidney disease, unspecified; I50.9 Heart failure, unspecified; I25.10 Atherosclerotic heart disease of native coronary artery without angina pectoris; K21.9 Gastro-esophageal reflux disease without esophagitis; Z95.5 Presence of coronary angioplasty implant and graft
CPT/HCPCS: 81001; 87086; 99283

== ENCOUNTER 2024-12-30 02:55 | Inpatient (IN) | payer MEDICARE ==
[2024-12-30] VITALS (8 sets, daily range): BP systolic 149–174; BP diastolic 85–98; PULSE 88–95; RESP 17–20; TEMP 96.6–99.3; O2SAT 100
[~2024-12-30] VITALS: Ht 167.6 cm; Wt 68.0 kg
[~2024-12-30 02:55] MED LIST changes: +CEFDINIR300 MG PO
[2024-12-30 03:25] LABS: BASOPHILS % 0.1 % (0.0-1.0); EOSINOPHILS % 0.0 % (0.0-6.0); LYMPHOCYTES % 7.6 % (18.0-39.1); MONOCYTES % 3.3 % (4.4-11.3); NEUTROPHILS % 87.4 % (38.7-80.0); RED CELL DISTRIBUTION WIDTH 13.2 % (11.7-14.4)
[2024-12-30] MEDS ORDERED: SODIUM CHLORIDE FLUSH 10 ML SYR IV PRN (03:30)
[2024-12-30] MEDS: SODIUM CHLORIDE 0.9% 1000ML 1,000 ML IV ONE (03:38)
[2024-12-30 03:45] LABS: EST GLOMERULAR FILTRATION RATE 42.0 ML/MIN (>=60)
[2024-12-30 03:56] LABS: LEUKOCYTE ESTERASE ,URINE NEGATIVE (NEGATIVE); PROTEIN,URINE DIPSTICK 2+ (NEGATIVE); URINE UROBILINOGEN 0.2 mg/dL (0.2 - 1)
[2024-12-30 04:00] LABS: EPITHELIAL CELLS,URINE RARE /LPF
[2024-12-30] MEDS ORDERED: ONDANSETRON HCL INJ 2MG/ML 2ML 2 MG/ML VIAL IV PRN (04:45)
[2024-12-30] MEDS: SODIUM CHLORIDE 0.9% 1000ML 1,000 ML IV SCH (05:21)
[2024-12-30] MEDS: ASPIRIN 81 MG CHEW TAB PO ONE (05:21)
[2024-12-30] MEDS ORDERED: HYDRALAZINE HCL 20 MG/ML VIAL IV PRN (10:00)
[2024-12-30] MEDS ORDERED: DEXTROSE 50% SYRINGE 50 ML IV PRN (11:00)
[2024-12-30 11:51] LABS: CREATININE,URINE RANDOM 22.41 mg/dL (63-166); TOTAL PROTEIN, URINE 38.6 mg/dL (1-14)
[2024-12-30] MEDS: Vancomycin IV 1 GM in SODIUM CHLORIDE 0.9% 250ML 250 ML IV ONE (13:55)
[2024-12-30] MEDS: INSULIN REGULAR, HUMAN 100 UNIT/1 ML SQ SCH (13:57)
[2024-12-30] MEDS: INSULIN GLARGINE 100 UNITS/ML VIAL SC SCH (13:57)
[2024-12-30] MEDS ORDERED: GABAPENTIN 300 MG CAP PO SCH (17:00)
[2024-12-30] MEDS: RANOLAZINE 500 MG TABSR PO SCH (18:12)
[2024-12-31] VITALS (8 sets, daily range): BP systolic 115–157; BP diastolic 64–93; PULSE 78–95; RESP 16–20; TEMP 97.3–99.3; O2SAT 98–100
[2024-12-31 06:37] LABS: BASOPHILS % 0.2 % (0.0-1.0); EOSINOPHILS % 0.6 % (0.0-6.0); LYMPHOCYTES % 19.9 % (18.0-39.1); MONOCYTES % 6.7 % (4.4-11.3); NEUTROPHILS % 71.4 % (38.7-80.0); RED CELL DISTRIBUTION WIDTH 13.4 % (11.7-14.4)
[2024-12-31 07:03] LABS: EST GLOMERULAR FILTRATION RATE 60.0 ML/MIN (>=60)
[2024-12-31] MEDS: TAMSULOSIN HCL 0.4 MG CAP PO SCH (09:10)
[2024-12-31] MEDS: FINASTERIDE 5 MG TAB PO SCH (09:11)
[2024-12-31] MEDS: CLOPIDOGREL BISULFATE 75 MG TAB PO SCH (09:11)
[2024-12-31] MEDS: PANTOPRAZOLE SOD 40 MG TABEC PO SCH (09:11)
[2024-12-31] MEDS: ATORVASTATIN 10 MG TAB PO SCH (09:11)
[2024-12-31] MEDS: LOSARTAN POTASSIUM 25 MG TAB PO SCH (09:55)
[2025-01-01] VITALS (7 sets, daily range): BP systolic 95–124; BP diastolic 53–75; PULSE 81–91; RESP 12–20; TEMP 97.9–98.8; O2SAT 98–100
[2025-01-01 05:36] LABS: BASOPHILS % 0.4 % (0.0-1.0); EOSINOPHILS % 0.8 % (0.0-6.0); LYMPHOCYTES % 15.4 % (18.0-39.1); MONOCYTES % 7.5 % (4.4-11.3); NEUTROPHILS % 75.1 % (38.7-80.0); RED CELL DISTRIBUTION WIDTH 13.6 % (11.7-14.4)
[2025-01-01 06:15] LABS: EST GLOMERULAR FILTRATION RATE 44.0 ML/MIN (>=60)
[2025-01-01] MEDS: LACTATED RINGER'S 1,000 ML INJ SCH (13:00)
[2025-01-01] MEDS ORDERED: CEFDINIR 300 MG CAP PO SCH (17:00)
[2025-01-02] VITALS (9 sets, daily range): BP systolic 121–175; BP diastolic 76–89; PULSE 84–99; RESP 16–20; TEMP 97.7–98.7; O2SAT 99–100
[2025-01-02 06:16] LABS: EST GLOMERULAR FILTRATION RATE 60.0 ML/MIN (>=60)
[2025-01-03] VITALS (9 sets, daily range): BP systolic 97–155; BP diastolic 62–90; PULSE 77–91; RESP 17–20; TEMP 97.9–98.7; O2SAT 97–100
[2025-01-04] VITALS (7 sets, daily range): BP systolic 118–161; BP diastolic 71–86; PULSE 83–90; RESP 16–18; TEMP 97.3–98.2; O2SAT 98–100
[2025-01-04 05:22] LABS: BASOPHILS % 0.3 % (0.0-1.0); EOSINOPHILS % 0.8 % (0.0-6.0); LYMPHOCYTES % 14.5 % (18.0-39.1); MONOCYTES % 8.6 % (4.4-11.3); NEUTROPHILS % 75.1 % (38.7-80.0); RED CELL DISTRIBUTION WIDTH 13.3 % (11.7-14.4)
[2025-01-04 05:56] LABS: EST GLOMERULAR FILTRATION RATE 42.0 ML/MIN (>=60)
[2025-01-04] MEDS: SODIUM BICARBONATE 8.4% VIAL 50 ML in SODIUM CHLORIDE 0.45% 1,000 ML IV ONE (13:21)
[2025-01-05 01:01] VITALS: BP 129/71; PULSE 86; RESP 18; TEMP 98.1; O2SAT 100
[2025-01-05 03:39] VITALS: BP 109/53; PULSE 76; RESP 17; TEMP 98.2; O2SAT 99
[2025-01-05 07:33] LABS: EST GLOMERULAR FILTRATION RATE 62.0 ML/MIN (>=60)
[2025-01-05] MEDS: LOSARTAN POTASSIUM 100 MG TAB PO SCH (08:59)
[2025-01-05 09:12] VITALS: BP 156/86; PULSE 86; RESP 20; TEMP 98.6; O2SAT 99
[2025-01-05 16:07] VITALS: BP 116/59; PULSE 84; RESP 19; TEMP 98; O2SAT 95
[2025-01-05] MEDS ORDERED: LOSARTAN POTAS100 MG PO (16:10)
[2025-01-05 19:49] VITALS: BP 125/66; PULSE 81; RESP 20; TEMP 99.4; O2SAT 100
== END 2025-01-05 20:43 | DRG 689 ==
LOC: ER 03:20 → ERHOLD 04:53 → MED/SURG 08:00 → OBSVTOIN 09:24
PROVIDERS: ADMIT Internal Medicine Critical Care Medicine; ATTEND Internal Medicine Critical Care Medicine
PROC: 0T9B70Z Drainage of Bladder with Drainage Device, Via Natural or Artificial Opening (ICD-10-PCS; principal; 2024-12-30)
DX: N39.0 Urinary tract infection, site not specified (principal); G93.41 Metabolic encephalopathy; I50.33 Acute on chronic diastolic (congestive) heart failure; I13.0 Hypertensive heart and chronic kidney disease with heart failure and stage 1 through stage 4 chronic kidney disease, or unspecified chronic kidney disease; N17.9 Acute kidney failure, unspecified; E87.1 Hypo-osmolality and hyponatremia; N40.1 Benign prostatic hyperplasia with lower urinary tract symptoms; R62.7 Adult failure to thrive; R33.8 Other retention of urine; E11.22 Type 2 diabetes mellitus with diabetic chronic kidney disease; N18.32 Chronic kidney disease, stage 3b; D63.1 Anemia in chronic kidney disease; E78.5 Hyperlipidemia, unspecified; E11.40 Type 2 diabetes mellitus with diabetic neuropathy, unspecified; K21.9 Gastro-esophageal reflux disease without esophagitis; R53.81 Other malaise; R55 Syncope and collapse; R26.81 Unsteadiness on feet; N31.9 Neuromuscular dysfunction of bladder, unspecified; I25.10 Atherosclerotic heart disease of native coronary artery without angina pectoris; Z79.02 Long term (current) use of antithrombotics/antiplatelets; Z79.4 Long term (current) use of insulin; Z95.1 Presence of aortocoronary bypass graft; Z86.73 Personal history of transient ischemic attack (TIA), and cerebral infarction without residual deficits; Z95.5 Presence of coronary angioplasty implant and graft
CPT/HCPCS: 36415; 70450; 70551; 71045; 76770; 80048; 80053; 81001; 82550; 82570; 82948; 83880; 84156; 84300; 84484; 85025; 87086; 93005; 93306; 94760; 95819; 96372; 99284; J0360; J0692; J0696; J0713; J1815; J2470; J7030; J7050

== ENCOUNTER 2025-03-17 10:30 | Inpatient (IN) | payer MEDICARE ==
[~2025-03-17] VITALS: Ht 167.6 cm; Wt 68.0 kg
[~2025-03-17 10:30] MED LIST changes: +LOSARTAN POTAS100 MG PO
[2025-03-17 11:01] LABS: BASOPHILS % 0.3 % (0.0-1.0); EOSINOPHILS % 0.1 % (0.0-6.0); LYMPHOCYTES % 14.0 % (18.0-39.1); MONOCYTES % 5.5 % (4.4-11.3); NEUTROPHILS % 77.6 % (38.7-80.0); RED CELL DISTRIBUTION WIDTH 15.6 % (11.7-14.4)
[2025-03-17 11:04] LABS: LEUKOCYTE ESTERASE ,URINE SMALL (NEGATIVE); PROTEIN,URINE DIPSTICK 2+ (NEGATIVE); URINE UROBILINOGEN 0.2 mg/dL (0.2 - 1)
[2025-03-17 11:11] LABS: INR 1.0
[2025-03-17 11:14] LABS: EPITHELIAL CELLS,URINE FEW /LPF; WBC,URINE (MAN) 21-50 /HPF (0-5)
[2025-03-17 11:15] LABS: HYALINE CASTS 0-1 (0-1)
[2025-03-17 11:15] LABS: EST GLOMERULAR FILTRATION RATE 27.0 ML/MIN (>=60)
[2025-03-17] MEDS: Vancomycin IV 1 GM in SODIUM CHLORIDE 0.9% 250ML 250 ML IV ONE (12:43)
[2025-03-17] MEDS ORDERED: ONDANSETRON HCL INJ 2MG/ML 2ML 2 MG/ML VIAL IV PRN (13:15)
[2025-03-17] MEDS ORDERED: DEXTROSE 50% SYRINGE 50 ML IV PRN (13:30)
[2025-03-17 14:30] VITALS: PULSE 75; RESP 16; TEMP 98
[2025-03-17] MEDS: SODIUM CHLORIDE 0.9% 1000ML 1,000 ML IV SCH (14:55)
[2025-03-17 16:32] VITALS: BP 127/90; PULSE 74; RESP 16; TEMP 98; O2SAT 100
[2025-03-17] MEDS: INSULIN LISPRO 100 UNIT/1 ML 3ML VIAL SQ SCH (17:45)
[2025-03-17] MEDS ORDERED: FARXIGA5 MG (18:42)
[2025-03-17] MEDS ORDERED: LANTUS 3ML100 UNITS/ (18:42)
[2025-03-17] MEDS ORDERED: ATORVASTATIN CA20 MG PO (18:42)
[2025-03-17] MEDS ORDERED: MECLIZINE HCL12.5 MG PO (18:42)
[2025-03-17] MEDS ORDERED: NOVOLOG100 UNIT/1 SC (18:42)
[2025-03-17] MEDS ORDERED: NEURONTIN300 MG PO (18:42)
[2025-03-17 18:45] VITALS: BP 162/93; PULSE 77; RESP 18; TEMP 97.7; O2SAT 100
[2025-03-17] MEDS ORDERED: MAGNESIUM/ALUMINUM/SIMETHICONE 30 ML UDC PO PRN (19:00)
[2025-03-17] MEDS ORDERED: ACETAMINOPHEN 325 MG TAB PO PRN (19:00)
[2025-03-17] MEDS ORDERED: GUAIFENESIN/DEXTROMETHORPHAN LIQD 5 ML UDC PO PRN (19:00)
[2025-03-17] MEDS ORDERED: HYDRALAZINE HCL 20 MG/ML VIAL IV PRN (19:00)
[2025-03-17] MEDS ORDERED: DOCUSATE SODIUM 100 MG CAP PO PRN (19:00)
[2025-03-17 19:44] VITALS: BP 131/76; PULSE 79; RESP 18; TEMP 97.2; O2SAT 99
[2025-03-17] MEDS: ATORVASTATIN 40 MG TAB PO SCH (21:09)
[2025-03-17] MEDS: HEPARIN SOD (PORCINE) 5,000 UNIT/ML VIAL SC SCH (21:15)
[2025-03-17 23:24] VITALS: BP 113/72; PULSE 79; RESP 18; TEMP 98; O2SAT 99
[2025-03-18 03:36] VITALS: BP 126/75; PULSE 74; RESP 18; TEMP 97.7; O2SAT 98
[2025-03-18 08:38] LABS: BASOPHILS % 0.3 % (0.0-1.0); EOSINOPHILS % 0.8 % (0.0-6.0); LYMPHOCYTES % 21.8 % (18.0-39.1); MONOCYTES % 6.8 % (4.4-11.3); NEUTROPHILS % 68.8 % (38.7-80.0); RED CELL DISTRIBUTION WIDTH 15.6 % (11.7-14.4)
[2025-03-18 08:59] LABS: EST GLOMERULAR FILTRATION RATE 32.0 ML/MIN (>=60)
[2025-03-18 09:15] VITALS: BP 168/92; PULSE 92; RESP 18; TEMP 98.2; O2SAT 100
[2025-03-18] MEDS: RANOLAZINE 500 MG TABSR PO SCH (09:33)
[2025-03-18] MEDS: TAMSULOSIN HCL 0.4 MG CAP PO SCH (09:33)
[2025-03-18] MEDS: MULTIVITAMINS/MINERALS TAB PO SCH (09:33)
[2025-03-18] MEDS: PANTOPRAZOLE SOD 40 MG TABEC PO SCH (09:33)
[2025-03-18] MEDS: ALLOPURINOL 100 MG TAB PO SCH (09:33)
[2025-03-18] MEDS: GABAPENTIN 100 MG CAP PO SCH (09:33)
[2025-03-18] MEDS: FINASTERIDE 5 MG TAB PO SCH (09:33)
[2025-03-18] MEDS ORDERED: MAGNESIUM HYDROXIDE 30 ML UDC PO PRN (12:45)
[2025-03-18] MEDS ORDERED: GABAPENTIN100 MG PO (12:49)
[2025-03-18] MEDS: DOCUSATE SODIUM 100 MG CAP PO SCH (13:53)
[2025-03-18 18:45] VITALS: BP 138/77; PULSE 82; RESP 18; TEMP 97.8; O2SAT 100
[2025-03-18 18:47] VITALS: BP 118/75; PULSE 99; RESP 18; TEMP 97; O2SAT 100
[2025-03-18 20:00] VITALS: BP 149/94; PULSE 108; RESP 16; TEMP 97.6; O2SAT 100
[2025-03-18] MEDS: MELATONIN 3 MG TAB PO PRN (20:40)
[2025-03-18 20:47] VITALS: BP 149/94; PULSE 108; RESP 16; TEMP 97.6; O2SAT 100
[2025-03-19] VITALS: BP 106/68; PULSE 80; RESP 16; TEMP 97.4; O2SAT 99
[2025-03-19 06:34] LABS: BASOPHILS % 0.4 % (0.0-1.0); EOSINOPHILS % 1.1 % (0.0-6.0); LYMPHOCYTES % 23.2 % (18.0-39.1); MONOCYTES % 8.5 % (4.4-11.3); NEUTROPHILS % 65.1 % (38.7-80.0); RED CELL DISTRIBUTION WIDTH 15.4 % (11.7-14.4)
[2025-03-19 07:15] LABS: EST GLOMERULAR FILTRATION RATE 47.0 ML/MIN (>=60)
[2025-03-19 09:21] VITALS: BP 141/79; PULSE 86; RESP 19; TEMP 97.5; O2SAT 100
[2025-03-19 12:00] VITALS: BP 122/71; PULSE 82; RESP 19; TEMP 97.8; O2SAT 100
[2025-03-19 16:07] VITALS: BP 151/81; PULSE 92; RESP 19; TEMP 98.2; O2SAT 100
[2025-03-19] MEDS: LACTATED RINGER'S 1,000 ML INJ SCH (17:48)
[2025-03-19 20:00] VITALS: BP 149/87; PULSE 95; RESP 18; TEMP 97.9; O2SAT 100
[2025-03-19 21:42] VITALS: BP 149/87; PULSE 95; RESP 18; TEMP 97.9; O2SAT 100
[2025-03-20] VITALS (7 sets, daily range): BP systolic 102–138; BP diastolic 59–85; PULSE 81–100; RESP 17–19; TEMP 97.8–98.5; O2SAT 100
[2025-03-20] MEDS ORDERED: BACTRIM DS TAB1 EACH PO (05:10)
[2025-03-20 06:43] LABS: BASOPHILS % 0.2 % (0.0-1.0); EOSINOPHILS % 0.7 % (0.0-6.0); LYMPHOCYTES % 20.2 % (18.0-39.1); MONOCYTES % 7.3 % (4.4-11.3); NEUTROPHILS % 70.5 % (38.7-80.0); RED CELL DISTRIBUTION WIDTH 15.2 % (11.7-14.4)
[2025-03-20 07:05] LABS: EST GLOMERULAR FILTRATION RATE 57.0 ML/MIN (>=60); PHOSPHORUS 3.5 MG/DL (2.3-4.7)
[2025-03-20] MEDS ORDERED: LASIX20 MG PO (15:33)
[2025-03-27] MEDS ORDERED: MULTI-VITAMIN1 EACH PO (13:39)
== END 2025-03-20 20:10 | disposition home or self-care (01) | DRG 699 ==
LOC: ER 11:00 → UNDOADMIN 13:12 → ERHOLD 13:12 → MED/SURG3 17:12
PROVIDERS: ADMIT Internal Medicine; ATTEND Internal Medicine
PROC: 0T9B70Z Drainage of Bladder with Drainage Device, Via Natural or Artificial Opening (ICD-10-PCS; principal; 2025-03-17)
DX: T83.511A Infection and inflammatory reaction due to indwelling urethral catheter, initial encounter (principal); E87.20 Acidosis, unspecified; I13.0 Hypertensive heart and chronic kidney disease with heart failure and stage 1 through stage 4 chronic kidney disease, or unspecified chronic kidney disease; N17.9 Acute kidney failure, unspecified; N39.0 Urinary tract infection, site not specified; E11.22 Type 2 diabetes mellitus with diabetic chronic kidney disease; I50.9 Heart failure, unspecified; B95.62 Methicillin resistant Staphylococcus aureus infection as the cause of diseases classified elsewhere; E78.5 Hyperlipidemia, unspecified; N18.31 Chronic kidney disease, stage 3a; D63.1 Anemia in chronic kidney disease; T83.031A Leakage of indwelling urethral catheter, initial encounter; I25.10 Atherosclerotic heart disease of native coronary artery without angina pectoris; K59.00 Constipation, unspecified; N40.1 Benign prostatic hyperplasia with lower urinary tract symptoms; R33.8 Other retention of urine; K21.9 Gastro-esophageal reflux disease without esophagitis; N31.9 Neuromuscular dysfunction of bladder, unspecified; E21.3 Hyperparathyroidism, unspecified; M10.9 Gout, unspecified; Z79.4 Long term (current) use of insulin; Y84.6 Urinary catheterization as the cause of abnormal reaction of the patient, or of later complication, without mention of misadventure at the time of the procedure; Z95.1 Presence of aortocoronary bypass graft; Z98.61 Coronary angioplasty status; Z96.0 Presence of urogenital implants
CPT/HCPCS: 36415; 71045; 76770; 80048; 80053; 81001; 82550; 82948; 83735; 83880; 84100; 84484; 85025; 85610; 85730; 87086; 87186; 93005; 96365; 99284; J1644; J2470; J2543; J3373; J7030; J7050

== ENCOUNTER 2025-03-22 16:59 | Emergency (ER) | payer MEDICARE ==
[~2025-03-22] VITALS: Ht 167.6 cm; Wt 68.0 kg
[~2025-03-22 16:59] MED LIST changes: +ATORVASTATIN CA20 MG PO; +BACTRIM DS TAB1 EACH PO; +FARXIGA5 MG; +GABAPENTIN100 MG PO; +LANTUS 3ML100 UNITS/; +MECLIZINE HCL12.5 MG PO; +NEURONTIN300 MG PO; +NOVOLOG100 UNIT/1 SC
[2025-03-22 17:15] VITALS: PULSE 94; RESP 16
[2025-03-22 21:28] VITALS: TEMP 97.7; O2SAT 99
[2025-03-27] MEDS ORDERED: MULTI-VITAMIN1 EACH PO (13:39)
== END 2025-03-22 21:20 | disposition home or self-care (01) ==
LOC: ER 17:38
DX: Z46.6 Encounter for fitting and adjustment of urinary device (principal); R33.9 Retention of urine, unspecified; I12.9 Hypertensive chronic kidney disease with stage 1 through stage 4 chronic kidney disease, or unspecified chronic kidney disease; E11.22 Type 2 diabetes mellitus with diabetic chronic kidney disease; N18.9 Chronic kidney disease, unspecified; I50.9 Heart failure, unspecified; I25.10 Atherosclerotic heart disease of native coronary artery without angina pectoris; E78.5 Hyperlipidemia, unspecified; K21.9 Gastro-esophageal reflux disease without esophagitis; Z95.1 Presence of aortocoronary bypass graft; Z95.5 Presence of coronary angioplasty implant and graft
CPT/HCPCS: 51700; 99283

== ENCOUNTER 2025-04-10 18:23 | Emergency (ER) | payer MEDICARE ==
[~2025-04-10] VITALS: Ht 167.6 cm; Wt 70.3 kg
[~2025-04-10 18:23] MED LIST changes: +MULTI-VITAMIN1 EACH PO
[2025-04-10 19:25] VITALS: TEMP 97.6
[2025-04-10 20:35] LABS: BASOPHILS % 0.3 % (0.0-1.0); EOSINOPHILS % 0.7 % (0.0-6.0); LYMPHOCYTES % 15.5 % (18.0-39.1); MONOCYTES % 7.6 % (4.4-11.3); NEUTROPHILS % 74.6 % (38.7-80.0); RED CELL DISTRIBUTION WIDTH 16.7 % (11.7-14.4)
[2025-04-10 20:57] LABS: EST GLOMERULAR FILTRATION RATE 35.0 ML/MIN (>=60)
[2025-04-11 00:38] VITALS: PULSE 87; RESP 15
[2025-04-11 02:01] VITALS: BP 147/87; O2SAT 98
== END 2025-04-11 00:45 | disposition other institution (70) ==
LOC: ER 18:27
DX: R42 Dizziness and giddiness (principal); R07.89 Other chest pain; I50.9 Heart failure, unspecified; D64.9 Anemia, unspecified; R53.1 Weakness; I12.9 Hypertensive chronic kidney disease with stage 1 through stage 4 chronic kidney disease, or unspecified chronic kidney disease; E11.22 Type 2 diabetes mellitus with diabetic chronic kidney disease; E11.65 Type 2 diabetes mellitus with hyperglycemia; N18.9 Chronic kidney disease, unspecified; I25.10 Atherosclerotic heart disease of native coronary artery without angina pectoris; E78.5 Hyperlipidemia, unspecified; K21.9 Gastro-esophageal reflux disease without esophagitis; R94.31 Abnormal electrocardiogram [ECG] [EKG]; Z95.1 Presence of aortocoronary bypass graft; Z95.5 Presence of coronary angioplasty implant and graft
CPT/HCPCS: 36415; 70450; 71045; 80053; 82550; 83690; 83880; 84484; 85025; 93005; 99284

== ENCOUNTER 2025-04-18 14:14 | Inpatient (IN) | payer MEDICARE ==
[~2025-04-18] VITALS: Ht 167.6 cm; Wt 70.3 kg
[2025-04-18 14:28] VITALS: TEMP 97.6
[2025-04-18 15:40] LABS: BASOPHILS % 0.4 % (0.0-1.0); EOSINOPHILS % 1.3 % (0.0-6.0); LYMPHOCYTES % 10.8 % (18.0-39.1); MONOCYTES % 8.7 % (4.4-11.3); NEUTROPHILS % 78.0 % (38.7-80.0); RED CELL DISTRIBUTION WIDTH 17.2 % (11.7-14.4)
[2025-04-18 15:46] LABS: WBC,URINE (MAN) >50 /HPF (0-5)
[2025-04-18 15:47] LABS: EPITHELIAL CELLS,URINE RARE /LPF
[2025-04-18 15:48] LABS: YEAST,URINE MODERATE
[2025-04-18 15:49] LABS: INR 1.09
[2025-04-18 15:58] LABS: EST GLOMERULAR FILTRATION RATE 29.0 ML/MIN (>=60)
[2025-04-18] MEDS: SODIUM CHLORIDE 0.9% 500ML 500 ML IV ONE (16:01)
[2025-04-18 16:10] VITALS: PULSE 77; RESP 18
[2025-04-18 16:28] LABS: B-TYPE NATRIURETIC PEPTIDE2 1617.9 pg/mL (0-100)
[2025-04-18 17:00] LABS: CORONAVIRUS COVID-19 AG NEGATIVE (NEGATIVE)
[2025-04-18] MEDS ORDERED: LINEZOLID 600 MG/D5W 300ML 300 ML IV SCH (18:00)
[2025-04-18 18:15] VITALS: BP 134/75; PULSE 83; RESP 18; TEMP 98.2; O2SAT 98
[2025-04-18] MEDS: FLUCONAZOLE 100 MG/NS 50 ML 50 ML IV SCH (18:21)
[2025-04-18] MEDS: SODIUM CHLORIDE 0.9% 1000ML 1,000 ML IV ONE (18:22)
[2025-04-18 18:30] VITALS: BP 134/75; PULSE 83; RESP 18; TEMP 98.2; O2SAT 98
[2025-04-18 20:00] VITALS: BP 151/85; PULSE 80; RESP 24; TEMP 98.1; O2SAT 98
[2025-04-18] MEDS: LINEZOLID 600 MG/D5W 300ML 300 ML IV SCH (20:47)
[2025-04-18] MEDS ORDERED: ONDANSETRON HCL 4 MG ORAL DISINTEGRATING TAB PO PRN (21:30)
[2025-04-18] MEDS ORDERED: DEXTROSE 50% SYRINGE 50 ML IV PRN (21:30)
[2025-04-19] VITALS (7 sets, daily range): BP systolic 133–157; BP diastolic 78–91; PULSE 83–90; RESP 18–21; TEMP 97.5–97.7; O2SAT 97–100
[2025-04-19 06:10] LABS: BASOPHILS % 0.4 % (0.0-1.0); EOSINOPHILS % 2.0 % (0.0-6.0); LYMPHOCYTES % 13.8 % (18.0-39.1); MONOCYTES % 8.3 % (4.4-11.3); NEUTROPHILS % 74.8 % (38.7-80.0); RED CELL DISTRIBUTION WIDTH 17.0 % (11.7-14.4)
[2025-04-19 06:36] LABS: CHOL/HDL RATIO 2.3 (3.9-4.7); EST GLOMERULAR FILTRATION RATE 39.0 ML/MIN (>=60); LDL CHOLESTEROL 33.0 MG/DL (60-130)
[2025-04-19] MEDS: ONDANSETRON HCL INJ 2MG/ML 2ML 2 MG/ML VIAL IV PRN (08:34)
[2025-04-19] MEDS: INSULIN LISPRO 100 UNIT/1 ML 3ML VIAL SQ SCH (08:44)
[2025-04-19] MEDS: CARVEDILOL 3.125 MG TAB PO SCH (10:02)
[2025-04-19] MEDS: GABAPENTIN 100 MG CAP PO SCH (10:02)
[2025-04-19] MEDS: RANOLAZINE 500 MG TABSR PO SCH (10:02)
[2025-04-19] MEDS: CLOPIDOGREL BISULFATE 75 MG TAB PO SCH (10:02)
[2025-04-19] MEDS ORDERED: FLUCONAZOLE 100 MG/NS 50 ML 50 ML IV SCH (14:00)
[2025-04-19] MEDS: POLYETHYLENE GLYCOL 3350 17 GM PACK PO PRN (16:29)
[2025-04-19] MEDS: ATORVASTATIN 40 MG TAB PO SCH (21:06)
[2025-04-20] VITALS (7 sets, daily range): BP systolic 118–159; BP diastolic 75–96; PULSE 65–90; RESP 14–20; TEMP 97.7–98.6; O2SAT 94–98
[2025-04-20 09:28] LABS: BASOPHILS % 0.6 % (0.0-1.0); EOSINOPHILS % 2.2 % (0.0-6.0); LYMPHOCYTES % 14.3 % (18.0-39.1); MONOCYTES % 10.0 % (4.4-11.3); NEUTROPHILS % 72.2 % (38.7-80.0); RED CELL DISTRIBUTION WIDTH 17.0 % (11.7-14.4)
[2025-04-20 10:06] LABS: EST GLOMERULAR FILTRATION RATE 56.0 ML/MIN (>=60)
[2025-04-20] MEDS: FLUCONAZOLE 100 MG TAB PO SCH (14:58)
[2025-04-21] VITALS (9 sets, daily range): BP systolic 119–154; BP diastolic 67–87; PULSE 75–92; RESP 16–20; TEMP 97.3–98.5; O2SAT 97–100
[2025-04-21] MEDS ORDERED: BISACODYL 10 MG SUPP PR PRN (11:30)
[2025-04-21] MEDS: DOCUSATE SODIUM 100 MG CAP PO SCH (11:34)
[2025-04-21] MEDS: SENNOSIDES 8.6 MG TAB PO SCH (11:34)
[2025-04-22 03:56] VITALS: BP 152/78; PULSE 87; RESP 17; TEMP 98.6; O2SAT 98
[2025-04-22 05:09] LABS: BASOPHILS % 0.6 % (0.0-1.0); EOSINOPHILS % 2.2 % (0.0-6.0); LYMPHOCYTES % 14.7 % (18.0-39.1); MONOCYTES % 10.4 % (4.4-11.3); NEUTROPHILS % 71.2 % (38.7-80.0); RED CELL DISTRIBUTION WIDTH 16.6 % (11.7-14.4)
[2025-04-22 06:03] LABS: EST GLOMERULAR FILTRATION RATE 50.0 ML/MIN (>=60)
[2025-04-22 07:43] VITALS: BP 150/87; PULSE 89; RESP 17; TEMP 98; O2SAT 99
[2025-04-22] MEDS: ACETAMINOPHEN 325 MG TAB PO PRN (07:54)
[2025-04-22 08:53] VITALS: BP 150/87; PULSE 89; RESP 17; TEMP 98; O2SAT 99
[2025-04-22] MEDS ORDERED: HYDRALAZINE HCL 20 MG/ML VIAL IV PRN (10:00)
[2025-04-22 16:40] VITALS: BP 129/81; PULSE 82; RESP 17; TEMP 97.9; O2SAT 97
[2025-04-22 20:00] VITALS: BP 133/77; PULSE 78; RESP 17; TEMP 98.1; O2SAT 99
[2025-04-23] VITALS (7 sets, daily range): BP systolic 117–157; BP diastolic 59–79; PULSE 68–91; RESP 18–20; TEMP 97.7–98.9; O2SAT 98–100
[2025-04-23 05:01] LABS: BASOPHILS % 0.7 % (0.0-1.0); EOSINOPHILS % 3.3 % (0.0-6.0); LYMPHOCYTES % 14.6 % (18.0-39.1); MONOCYTES % 10.0 % (4.4-11.3); NEUTROPHILS % 70.2 % (38.7-80.0); RED CELL DISTRIBUTION WIDTH 16.4 % (11.7-14.4)
[2025-04-23 05:38] LABS: EST GLOMERULAR FILTRATION RATE 51.0 ML/MIN (>=60)
[2025-04-23] MEDS ORDERED: DEXTROSE 50% SYRINGE 50 ML IV PRN (16:15)
[2025-04-23] MEDS: ENOXAPARIN SOD INJ 40 MG/0.4 ML SYR SC SCH (17:01)
[2025-04-23] MEDS: INSULIN REGULAR, HUMAN 100 UNIT/1 ML SQ SCH (17:02)
[2025-04-23] MEDS: INSULIN GLARGINE 100 UNITS/ML VIAL SQ SCH (20:16)
[2025-04-23] MEDS: MELATONIN 5 MG TABLET PO PRN (23:26)
[2025-04-24 04:45] VITALS: BP 125/70; PULSE 75; RESP 18; TEMP 97.8; O2SAT 98
[2025-04-24 08:05] VITALS: BP 135/72; PULSE 79; RESP 16; TEMP 97.8; O2SAT 100; O2SAT 99
[2025-04-24] MEDS: FLUCONAZOLE 100 MG TAB PO SCH (08:07)
[2025-04-24 12:05] VITALS: BP 130/70; PULSE 82; RESP 16; TEMP 97.9; O2SAT 100
[2025-04-24 16:05] VITALS: BP 120/64; PULSE 72; RESP 16; TEMP 98.3; O2SAT 100
[2025-04-24] MEDS: INSULIN GLARGINE 100 UNITS/ML VIAL SQ SCH (16:42)
[2025-04-24 20:00] VITALS: BP 154/88; PULSE 77; RESP 18; TEMP 97.6; O2SAT 100
[2025-04-25] VITALS (7 sets, daily range): BP systolic 117–145; BP diastolic 72–88; PULSE 74–85; RESP 16; TEMP 97.5–98.3; O2SAT 98–100
== END 2025-04-25 18:50 | DRG 291 ==
LOC: ER 14:26 → ERHOLD 16:52 → MED/SURG 18:14
PROVIDERS: ADMIT Family Medicine Adult Medicine; ATTEND Family Medicine Adult Medicine
DX: I13.0 Hypertensive heart and chronic kidney disease with heart failure and stage 1 through stage 4 chronic kidney disease, or unspecified chronic kidney disease (principal); I50.43 Acute on chronic combined systolic (congestive) and diastolic (congestive) heart failure; D68.9 Coagulation defect, unspecified; N17.9 Acute kidney failure, unspecified; B37.49 Other urogenital candidiasis; N40.1 Benign prostatic hyperplasia with lower urinary tract symptoms; N13.8 Other obstructive and reflux uropathy; N18.32 Chronic kidney disease, stage 3b; E87.5 Hyperkalemia; D63.1 Anemia in chronic kidney disease; E11.22 Type 2 diabetes mellitus with diabetic chronic kidney disease; E11.42 Type 2 diabetes mellitus with diabetic polyneuropathy; I25.10 Atherosclerotic heart disease of native coronary artery without angina pectoris; K21.9 Gastro-esophageal reflux disease without esophagitis; K59.00 Constipation, unspecified; R41.82 Altered mental status, unspecified; N31.9 Neuromuscular dysfunction of bladder, unspecified; R53.81 Other malaise; Z79.02 Long term (current) use of antithrombotics/antiplatelets; Z79.4 Long term (current) use of insulin; Z96.0 Presence of urogenital implants; Z95.1 Presence of aortocoronary bypass graft; Z95.5 Presence of coronary angioplasty implant and graft; Z86.14 Personal history of Methicillin resistant Staphylococcus aureus infection; Z91.048 Other nonmedicinal substance allergy status
CPT/HCPCS: 36415; 70450; 71045; 76705; 80053; 80061; 81001; 82140; 82550; 82948; 83735; 83880; 84484; 85025; 85610; 85730; 87040; 87086; 93005; 96372; 99284; J0696; J1450; J1650; J1815; J2020; J2405; J2470; J7030; J7040